=== PATIENT | female | born 1945 | race Caucasian/White ===

== ENCOUNTER → 2023-12-22 08:12 | Outpatient (REF) | payer MEDICARE, OTHER, SELFPAY | LOC: HWRAD 08:12 | PROVIDERS: ATTENDING PHYSICIAN Family Medicine | DX: E04.1 Nontoxic single thyroid nodule (principal) | CPT/HCPCS: 76536 ==

== ENCOUNTER 2024-05-01 07:58 | Inpatient (IN) | payer MEDICARE, OTHER, SELFPAY ==
[2024-05-01] VITALS (7 sets, daily range): BP systolic 122–138; BP diastolic 66–98; BMI 36.2
--- NOTE | 2024-05-01 08:25 | W.PN.CARDCBS ---
Addendum entered and electronically signed by Lyle Stewart DO 05/01/24 10:35:
I saw and examined the patient.
The [employer]'s note was reviewed and I agree with the note.
Comment:
Plan:
Admit for Tikosyn reload. Prior Tikosyn stopped post PVI in December 2023
EKG stable in AFib
She has not missed any doses of anticoagulation
Cont Lopressor
Discussed with family at bedside.
Original Note:
Today's Communication / Plan
-
Labs pending, she is a hard stick
ECG with Afib and QTc 444 ms
Impression / Plan
-
PCP: Dr. Marta Bansal
Cardiology: Dr. Perez
EP: Dr. Workman
Impression:
Paroxysmal Afib
previous flecainide therapy stopped due to ineffectiveness 07/27/23
previous Tikosyn therapy stopped post-PVI 01/09/23
s/p PVI 10/08/23
Chronic Eliquis OAC
KATHLEEN on CPAP
HTN
Normal coronary arteries by cath 04/26/23
h/o breast CA with lumpectomy and XRT 1997
Echo 04/30/23: EF 50%, mild MR, normal aortic valve, normal right heart with mod PHTN with PAP 51 mmHg
Plan:
-Patient came to today for elective Tikosyn loading for recurrent paroxysmal Afib. Patient previously on flecainide, but due to increasing ineffectiveness she stopped flecainide 07/27/23 and was admitted to for Tikosyn loading 08/02/23. Patient
converted after her 1st dose of Tikosyn at that time, but recurred prior to her 5th dose and plan was for a CV, but she spontaneously converted again and was discharged to home in [place]. Patient says that she continued with palpitations and ultimately
had PVI 10/08/23. Tikosyn was stopped 01/10/24 and patient feels she started with increased palpitations and was noted to be in Afib when she saw Dr. Perez in the office 03/13/24 and was referred back to Dr. Workman. Patient was seen by Dr. Workman
04/12/24 and was offered repeat ablation, restart Tikosyn or do nothing and patient chose to restart Tikosyn.
-ECG reviewed by me and patient is in Afib with HRs 110s. She has palpitations.
-Check BMP and pending results with start Tikosyn 500 mcg q 12 hours, patient previously tolerated this dose without QT prolongation in 07/2023.
-She has not missed any doses of Eliquis 5 mg BID.
-Cont outpatient dose of Lopressor 75 mg BID
-Follow BP
Progress Note - Regional Sales Consultant
Subjective
Date of Service: May 01, 2024
She has palpitations
Objective
Labs:
Ordered and pending
Vital Signs and I&O:
BP 134/98, HR 106, RR 20, temp 98.9 �F
Physical Exam
Physical Exam
GEN: No distress, awake, alert and oriented x3
HEENT: EOMI, MMM
LUNGS: CTA B/L, no wheezes or rales
CV: Irreg irreg, S1/S2, no murmur
ABD: soft, BS+, NT, ND
EXT: No clubbing, cyanosis, lesions or edema B/L
NEURO: Gross non-focal
SKIN: Warm, dry and pink. No rash
[2024-05-01 09:46] LABS: Hematocrit 40.9 % (37.0-47.0); Hemoglobin 13.2 g/dL (12.0-16.0); Mean Corp Hgb Conc. 32.3 g/dL (33.0-37.0); Mean Corpuscular Hgb 30.2 pg (27.0-31.0); Mean Corpuscular Volume 93.6 fL (81.0-99.0); Mean Platelet Volume 10.1 fL (7.4-10.4); Platelet Count 200 10^3/uL (130-400); Red Blood Cell Count 4.37 10^6/uL (4.20-5.40); White Blood Cell Count 5.8 10^3/uL (4.8-10.8)
--- NOTE | 2024-05-01 09:53 | PTCARENOTE ---
Patient admitted from home for tikosyn loading. Oriented to room and plan of care, admission assessment completed, EKG and labs done. Patient is in AF, VSS, does feel palpitations at times. Daughter at the bedside, await lab results and will start
tikosyn dose as ordered.
[2024-05-01 10:09] LABS: ALT (SGPT) 31 U/L (0-35); AST (SGOT) 42 U/L (14-36); Albumin 4.5 g/dl (3.5-5.0); Alkaline Phosphatase 127 U/L (38-126); Blood Urea Nitrogen 20 mg/dl (7-17); Carbon Dioxide 28 mmol/L (22-30); Chloride 108 mmol/L (98-107); Estimated Creatinine Clearance 59 ml/min; Glucose 100 mg/dl (70-99); Magnesium 2.2 mg/dl (1.6-2.3); Potassium 4.5 mmol/L (3.5-5.1); Sodium 142 mmol/L (135-145); Total Bilirubin 0.6 mg/dl (0.2-1.3); Total Protein 7.1 g/dl (6.3-8.2); eGFR > 60.00
--- NOTE | 2024-05-01 10:19 | W.CARD.TIKOS ---
Initiate Tikosyn
-
I verify that the patient has not taken any verapamil (Isoptin/Calan), ketoconazole (Nizoral), cimetidine (Tagamet), trimethoprim (Trimpex), trimethoprim/sulfamethoxazole (Bactrim), megesterol (Megace), prochlorperazine (Compazine),
hydrochlorothiazide (HCTZ), dolutegravir (Tivicay) or any Class I or Class III anti-arrhythmic within the last three days
AND
I verify that the patient has not taken amiodarone within the last THREE months, or that the patient's amiodarone plasma concentration is <0.3 mcg/mL.
Creatinine 0.8 mg/dL (0.6-1.0) 05/01/24 09:37
Estimated Creat Clear 59 ml/min 05/01/24 09:37
CrCl calculated by me is 80
Does patient have a Ventricular Conduction Abnormality: No
I have assessed the baseline QTc interval (using QT for heart rate less than 60 bpm) and deemed the patient is appropriate for Dofetilide therapy. I understand that Tikosyn is contraindicated if the QTc is >440msec (500msec in patients with
ventricular conduction abnormalities).
Baseline QTc (in msec): 444
QTc interval is greater than 440msec without conduction abnormality OR greater than 500msec with a conduction abnormality, but acceptable to proceed per Cardiology attending.
Reason for Administration with Prolonged QTc: Other Atrial Arrhythmia
Ordering Physician: Lyle Stewart
[2024-05-01] MEDS: TIKOSYN 500 MCG PO ×2 (10:46→22:00)
--- NOTE | 2024-05-01 12:21 | CM ---
spoke to pt in room, she is prev indep, lives with her daughter in a 2 story home with a first floor set up and no steps to enter. she has a cpap she wears at home but did not bring to hospital. she denies any dc planning needs.
--- NOTE | 2024-05-01 15:37 | PTCARENOTE ---
Patient noted to have converted to SR after first dose of tikosyn, confirmed by EKG. Jennifer OWENS notified
[2024-05-01] MEDS: LIPITOR 10 MG PO (17:28)
[2024-05-01] MEDS: ELIQUIS 5 MG PO (20:11)
[2024-05-01] MEDS: LOPRESSOR 75 MG PO (20:13)
[2024-05-01] MEDS: FLUSH (NSS) 1 FLUSH IV (20:14)
--- NOTE | 2024-05-01 21:44 | PTCARENOTE ---
Received patient at change of shift. Awake and oriented x3. Sitting in the chair. BP 126/66, HR 70 normal sinus, oxygen 96 on room air. Patient usually wears a CPAP at home, but requests just oxygen at bedtime. Discussed next Tikosyn dose and EKG to
follow two hours later. Call arevalo within reach.
[2024-05-02 00:01] VITALS: BP 137/81
--- NOTE | 2024-05-02 00:09 | PTCARENOTE ---
Post 2nd Tikosyn dose QTc 491. Sinus rhythm.
[2024-05-02 03:37] VITALS: BP 115/58
[2024-05-02 04:15] LABS: Hematocrit 36.3 % (37.0-47.0); Mean Corp Hgb Conc. 33.1 g/dL (33.0-37.0); Mean Corpuscular Hgb 31.7 pg (27.0-31.0); Mean Corpuscular Volume 95.8 fL (81.0-99.0); Mean Platelet Volume 10.2 fL (7.4-10.4); Platelet Count 155 10^3/uL (130-400); Red Blood Cell Count 3.79 10^6/uL (4.20-5.40); Red Cell Dist. Width 14.2 % (11.5-14.5); White Blood Cell Count 5.8 10^3/uL (4.8-10.8)
[2024-05-02 04:36] LABS: Blood Urea Nitrogen 21 mg/dl (7-17); Carbon Dioxide 28 mmol/L (22-30); Estimated Creatinine Clearance 59 ml/min; eGFR > 60.00
[2024-05-02 04:46] LABS: Calcium 9.6 mg/dl (8.4-10.2); Chloride 109 mmol/L (98-107); Glucose 96 mg/dl (70-99); Sodium 139 mmol/L (135-145)
[2024-05-02 07:38] VITALS: BP 135/65
[2024-05-02] MEDS: LOPRESSOR 75 MG PO (08:21)
[2024-05-02] MEDS: ELIQUIS 5 MG PO (08:21)
--- NOTE | 2024-05-02 08:47 | W.PN.CARDCBS ---
Addendum entered and electronically signed by Nahomy Mccabe PA-C 05/02/24 11:38:
[id number]
Addendum entered and electronically signed by Lyle Stewart DO 05/02/24 11:00:
I saw and examined the patient.
The Rn Procedure's note was reviewed and I agree with the note.
Comment:
Plan:
She converted to sinus
QTc remains stable.
Tolerating Tikosyn as she did previous
Cont anticoagulation
outpt follow up arranged.
Pt was appreciative
Discussed with EP
Stable for d/c today.
Original Note:
Today's Communication / Plan
-
follow QTc
ok for DC after 3rd dose of tikosyn if QTc remains stable
OP cardiac follow up arranged
Impression / Plan
-
PCP: Dr. Marta Bansal
Cardiology: Dr. Perez
EP: Dr. Workman
Impression:
Paroxysmal Afib
previous flecainide therapy stopped due to ineffectiveness 07/27/23
previous Tikosyn therapy stopped post-PVI 01/10/24
s/p PVI 10/08/23
Chronic Eliquis OAC
KATHLEEN on CPAP
HTN
Normal coronary arteries by cath 04/26/23
h/o breast CA with lumpectomy and XRT 1997
Echo 04/30/23: EF 50%, mild MR, normal aortic valve, normal right heart with mod PHTN with PAP 51 mmHg
Plan:
-she presents for reload of tikosyn. she had previously tolerated same dose of tikosyn 07/2023 which was stopped 12/2023
-she converted back to SR around 1:30 PM 05/01. she is for tikosyn dose #3 this AM. reviewed with EP, if QTc remains stable, ok for DC after 3rd dose. she had previously tolerated same dose of tikosyn 07/2023
-continue eliquis 5mg BID
-continue lopressor 75mg BID
-OP cardiac follow up arranged
PREADMIT DATA:
-Patient came to today for elective Tikosyn loading for recurrent paroxysmal Afib. Patient previously on flecainide, but due to increasing ineffectiveness she stopped flecainide 07/27/23 and was admitted to for Tikosyn loading 08/02/23. Patient
converted after her 1st dose of Tikosyn at that time, but recurred prior to her 5th dose and plan was for a CV, but she spontaneously converted again and was discharged to home in [place]. Patient says that she continued with palpitations and ultimately
had PVI 10/08/23. Tikosyn was stopped 01/10/24 and patient feels she started with increased palpitations and was noted to be in Afib when she saw Dr. Perez in the office 03/13/24 and was referred back to Dr. Workman. Patient was seen by Dr. Workman
04/12/24 and was offered repeat ablation, restart Tikosyn or do nothing and patient chose to restart Tikosyn.
Progress Note - Pl[employer]her
Subjective
Date of Service: May 02, 2024
feeling well. no issues overnight
Objective
Labs:
05/02/24 03:50
05/02/24 03:50
Labs
Hgb 12.0 g/dL (12.0-16.0) 05/02/24 03:50
Hct 36.3 % (37.0-47.0) L 05/02/24 03:50
Plt Count 155 10^3/uL (130-400) D 05/02/24 03:50
Sodium 139 mmol/L (135-145) 05/02/24 03:50
Potassium 4.0 mmol/L (3.5-5.1) 05/02/24 03:50
BUN 21 mg/dl (7-17) H 05/02/24 03:50
Creatinine 0.8 mg/dL (0.6-1.0) 05/02/24 03:50
Glucose 96 mg/dl (70-99) 05/02/24 03:50
Vital Signs and I&O:
Vital Signs
Temp Pulse Resp BP Pulse Ox
97.8 F 59 18 135/65 96
05/02/24 07:39 05/02/24 08:21 05/02/24 07:39 05/02/24 08:21 05/02/24 07:39
Vital Signs
Temp Pulse Resp BP Pulse Ox
97.8 F 59 18 135/65 96
05/02/24 07:39 05/02/24 08:21 05/02/24 07:39 05/02/24 08:21 05/02/24 07:39
Intake & Output
04/30/24 05/01/24 05/02/24 05/03/24
07:59 07:59 07:59 07:59
Intake Total 740 / 740
Balance 740 / 740
Physical Exam
Physical Exam
GEN: No distress, awake, alert, oriented x3
HEENT: supple, anicteric, mmm, eomi
LUNGS: CTA B/L, no wheezes
CV: Reg, S1/S2, no murmur
ABD: soft, BS+, NT/ND
EXT: No cyanosis, clubbing. trace edema of B/L LE
NEURO: Gross non-focal
SKIN: Warm, pink, dry. No rash
[2024-05-02] MEDS: TIKOSYN 500 MCG PO (09:10)
--- NOTE | 2024-05-02 09:21 | W.DS.TRANS ---
DC Summary - [employer]ing [employer]
-
Discharge Instructions:
Discharge Diagnosis/Procedures atrial fibrillation, tikosyn load
Diet Regular
Activity As tolerated
Driving Restrictions As prior to admission
Bathing Restrictions None
Instructions:
Stand-Alone Forms:
Changes to Home Medications: Yes
Discharge Medications:
DC Medications w/original date entered in [employer]
apixaban 5 mg tablet (Eliquis) 5 mg PO BID Blood Clot Prevention/Tx 04/26/23
atorvastatin 10 mg tablet 10 mg PO QPM High Cholesterol 04/26/23
vit C 250 mg-vit E 90 mg-zinc 40 mg-copper 1 mm-zcduyl-cyoxxg capsule (PreserVision AREDS-2) 1 tab PO BID Supplement 04/26/23
metoprolol tartrate 75 mg tablet 75 mg PO BID 09/24/23
cholecalciferol (vitamin D3) 50 mcg (2,000 unit) capsule (Vitamin D3) 50 mcg PO DAILY 05/01/24
dofetilide 500 mcg capsule (Tikosyn) 500 mcg PO Q12H #60 caps 05/02/24
Home Medication Changes
tikosyn is new
Pending Results: No
[2024-05-02 11:19] VITALS: BP 138/63
== END 2024-05-02 14:13 | disposition home or self-care (01) | DRG 310 ==
LOC: IVU 07:58
PROVIDERS: Physician Assistant Medical; ADMITTING PHYSICIAN Internal Medicine Cardiovascular Disease; FAMILY PHYSICIAN Family Medicine
DX: I48.0 Paroxysmal atrial fibrillation (principal); I10 Essential (primary) hypertension; G47.33 Obstructive sleep apnea (adult) (pediatric); I34.1 Nonrheumatic mitral (valve) prolapse; E78.00 Pure hypercholesterolemia, unspecified; E66.9 Obesity, unspecified; Z68.36 Body mass index [BMI] 36.0-36.9, adult; Z79.01 Long term (current) use of anticoagulants; Z85.3 Personal history of malignant neoplasm of breast; Z92.3 Personal history of irradiation; Z82.49 Family history of ischemic heart disease and other diseases of the circulatory system; Z79.899 Other long term (current) drug therapy
CPT/HCPCS: 80048; 80053; 83735; 85027; 93005

== ENCOUNTER 2024-09-29 08:58 | Emergency (ER) | payer MEDICARE, OTHER, SELFPAY ==
[2024-09-29 09:13] VITALS: BP 120/97
[2024-09-29 10:00] VITALS: BP 146/79
[2024-09-29 10:07] LABS: % Basophils 0.8 % (0-2); % Immature Granulocytes 0.4 % (0-0.5); % Lymphocytes 19.1 % (20.5-51.1); % Monocytes 10.2 % (1.7-9.3); % Neutrophils 68.5 % (42.2-75.2); Absolute Eosinophils 0.1 10^3/uL (0-0.7); Absolute Monocytes 0.5 10^3/uL (0.1-0.6); Absolute Neutrophils 3.5 10^3/uL (1.4-6.5); Hematocrit 41.5 % (37.0-47.0); Hemoglobin 13.6 g/dL (12.0-16.0); Mean Corp Hgb Conc. 32.8 g/dL (33.0-37.0); Mean Corpuscular Hgb 30.9 pg (27.0-31.0); Mean Corpuscular Volume 94.3 fL (81.0-99.0); Mean Platelet Volume 10.5 fL (7.4-10.4); Nucleated Red Blood Cells % 0 %; Platelet Count 188 10^3/uL (130-400); White Blood Cell Count 5.1 10^3/uL (4.8-10.8)
[2024-09-29 10:12] LABS: ALT (SGPT) 29 U/L (0-35); AST (SGOT) 43 U/L (14-36); Albumin 4.4 g/dl (3.5-5.0); Alkaline Phosphatase 118 U/L (38-126); Blood Urea Nitrogen 16 mg/dl (7-17); Calcium 9.5 mg/dl (8.4-10.2); Carbon Dioxide 25 mmol/L (22-30); Chloride 105 mmol/L (98-107); Glucose 111 mg/dl (70-99); Potassium 4.4 mmol/L (3.5-5.1); Sodium 140 mmol/L (135-145); Total Bilirubin 0.6 mg/dl (0.2-1.3); Total Protein 7.2 g/dl (6.3-8.2); eGFR > 60.00
[2024-09-29 10:13] LABS: NT-proBNP 1550 pg/ml
[2024-09-29 10:28] LABS: COVID-19 Antigen Negative (Negative)
--- NOTE | 2024-09-29 10:49 | ED.GENMED ---
History of Present Illness
General
Chief Complaint: Cold/Flu/URI Symptoms
Source: patient and family
Time Seen by Provider: 09/29/24 10:35
History of Present Illness
History of Present Illness:
This patient is an 79-year-old female who states she has had 'cold symptoms' for at least a few days. She notes her most predominant complaint is a cough which is sometimes productive associated with wheezing. This seems to be worse at night, and
when she lays down. She is not able to wear her CPAP as a result. She says she normally goes 'in and out' of A-fib, and notices that she seems to be in it more frequently with the symptoms. She reports sick contacts and that her grandchildren
have RSV and walking pneumonia. She denies chest pain or pressure, dizziness, fever, chills, abdominal pain, nausea, vomiting, leg swelling, or other complaints. Patient does not have a history of heart failure.
Past History
Past History
ED Past Medical History: Other (Hypertension, A-fib, macular degeneration, breast cancer in remission)
ED Past Surgical History: Orthopedic
Social History
Tobacco: Former smoker
Alcohol: None
Drug: None
Living: with family
Phy Exam
Physical Exam
Physical Exam:
GENERAL: Alert , in no apparent distress, very pleasant, in no distress
EYE: pupils equal and reactive
NECK: Supple, no significant adenopathy.
ENT: o/p clr, mmm.
CARDIAC: Regular rate and rhythm .
LUNGS: Equal breath sounds bilaterally, no acute respiratory distress, diffuse wheezing, no rales or rhonchi, occasional cough noted
ABDOMEN: Soft, without focal tenderness, no r/g, no cvat
NEUROLOGICAL: Alert and oriented, no focal neuro deficits
SKIN: Warm and dry, skin intact.
MUSCULOSKELETAL: No edema, well perfused.
PSYCH: Normal and appropriate interaction.
Course
Orders/Labs/Results
Orders:
Orders
09/29/24 09:21
Electrocardiogram (*1) Urgent
Reason for Study: Abdominal Pain
EKG- Treatment ONCE
09/29/24 09:41
COVID-19 Antigen Urgent
Source: Nasal Swab
Complete Blood Count/With Diff Urgent
Comprehensive Metabolic Panel Urgent
NT-proBNP Urgent
Influenza A+B Rapid Molecular Urgent
HILARY Source: Nasal Swab
Specimen Description:
09/29/24 10:37
CR Chest - 2 Views Urgent
Comment:
Reason For Exam: sob
09/29/24 10:48
Levalbuterol [Xopenex 1.25 mg Inhalant Solution] 1.25 mg INH R NOW STA
Prednisone [Deltasone] 50 mg PO NOW STA
09/29/24 11:20
Prednisone [Deltasone] 50 mg .ROUTE .STK-MED ONE
Abnormal Lab Results
09/29/24
09:41
MCHC 32.8 L g/dL
(33.0-37.0)
MPV 10.5 H fL
(7.4-10.4)
Absolute Lymphs (auto) 1.0 L 10^3/uL
(1.2-3.4)
Lymphocytes % 19.1 L %
(20.5-51.1)
Monocytes % 10.2 H %
(1.7-9.3)
Glucose 111 H mg/dl
(70-99)
AST 43 H U/L
(14-36)
09/29/24 09:41
09/29/24 09:41
Vital Signs
Initial and Last Documented VS:
Initial Vital Signs
Temp Pulse Resp BP Pulse Ox
98.8 F 81 20 120/97 94
09/29/24 09:13 09/29/24 09:13 09/29/24 09:13 09/29/24 09:13 09/29/24 09:13
Last Documented Vital Signs
Temp Pulse Resp BP Pulse Ox
98.8 F 81 20 120/97 94
09/29/24 09:13 09/29/24 09:13 09/29/24 09:13 09/29/24 09:13 09/29/24 09:13
*Critical Care Note
Total Time (30-74mins, 75-104mins- exclusive of procedures): Not Applicable
Update Note
Update Note:
Patient presents to the Emergency Department with __cough and wheezing
Number and Complexity of Problems Addressed at the Encounter
� Chronic conditions affecting care:
� Acute Exacerbation and/or Progression of Chronic Illness:
� Differential Diagnosis includes: But not limited to bronchitis, pneumonia, heart failure, ACS, etc. etc.
Amount and/or Complexity of Data to be Reviewed and Analyzed
� I performed an independent evaluation of and my interpretation is:
EKG:
CT:
Xrays:
Laboratory Studies: Generally unremarkable, BNP elevation noted
Other:
� Review of other/old records reveals: Patient was admitted April 2024 with paroxysmal A-fib, loaded on Tikosyn, normal coronary arteries by cath March 2023. Echocardiogram April 2023 normal LV size and thickness EF 50%
� Clinical information was obtained by an independent historian: Daughter who is bedside and patient lives with
� Prescriptions/Medications Considered but not given:
� Further testing considered but not performed:
Risk of Complications and/or Morbidity or Mortality of Patient Management
� Social determinants of health affecting care:
� Discussion with other providers (PCP, Hospitalists, Consultants, etc):
� Escalation of care including admission/observation vs risk of discharge considered: 11:46 AM patient remains in a normal sinus rhythm, heart rate in the 60s. She feels better status post inhaler/nebulizer here. No specific
pneumonia noted. Clearly patient has cough and wheezing, suspect viral etiology. Recommend steroids and inhaler, will use Xopenex given her history of A-fib. Discussed with patient importance of follow-up and reasons to return to the ER.
Daughter at bedside and in agreement.
ED Attending Note
-
Portions of this chart may have been created with voice recognition software.� Occasional wrong word or��sound alike� substitutions may have occurred due to the inherent limitations of voice recognition software.
Discharge Plan
Departure
Patient Disposition: Home (Routine Discharge)
Date of Disposition: 09/29/24
Time of Disposition: 11:43
Patient with high blood pressure during this ER visit?: Yes
Condition: Good
Discharge Problem:
Acute bronchitis
Instructions: Acute Bronchitis, Adult (DC), BLOOD PRESSURE
Prescriptions:
New
levalbuterol tartrate [Xopenex HFA] 45 mcg/actuation HFA aerosol inhaler
2 inh inhalation Q6H Qty: 15 0RF
prednisone 50 mg tablet
50 mg PO DAILY Qty: 5 0RF
No Action
atorvastatin 10 mg Tablet
10 mg PO QPM
Eliquis 5 mg Tablet
5 mg PO BID
PreserVision AREDS-2 250-90-40-1 mg Capsule
1 tab PO BID
metoprolol tartrate 75 mg Tablet
75 mg PO BID
cholecalciferol (vitamin D3) [Vitamin D3] 50 mcg (2,000 unit) Capsule
50 mcg PO DAILY
dofetilide [Tikosyn] 500 mcg capsule
500 mcg PO Q12H Qty: 60 11RF
Referrals:
Marta Bansal DO [Family Provider] - Follow up in 2-3 days
Activity Restrictions/Additional Instructions:
IF YOU DEVELOP FEVER, VOMITING, CHEST PAIN, WORSENING/PERSISTENT TROUBLE BREATHING, DIZZINESS, SWELLING, OR OTHER WORRISOME SIGNS, GO TO THE ER IMMEDIATELY!
Interventions
Interventions:
*Risk Screen - Suicide Last Done: 09/29/24 09:13
*General Assessment Last Done: 09/29/24 09:13
*Neglect/Abuse Screening Last Done: 09/29/24 09:13
Discharge Date and Time
Print Language: BULGARIAN
[2024-09-29] MEDS: XOPENEX 1.25 MG INHALANT SOLUTION INH (11:23)
[2024-09-29] MEDS: DELTASONE 50 MG PO (11:23)
[2024-09-29 12:12] LABS: Troponin I < 0.012 ng/ml
== END 2024-09-29 11:55 | disposition home or self-care (01) ==
LOC: EMR 08:58
PROVIDERS: EMERGENCY PHYSICIAN Emergency Medicine; FAMILY PHYSICIAN Family Medicine
DX: J20.9 Acute bronchitis, unspecified (principal); I10 Essential (primary) hypertension; Z87.891 Personal history of nicotine dependence
CPT/HCPCS: 99283; 94640; 71046; 80053; 83880; 84484; 85025; 87502; 87811; 93005

== ENCOUNTER 2024-10-02 20:46 | Inpatient (IN) | payer MEDICARE, OTHER, SELFPAY ==
[2024-10-02] VITALS (7 sets, daily range): BP systolic 123–164; BP diastolic 77–102; BMI 37.5; BMI 35.4
--- NOTE | 2024-10-02 15:11 | ED.GENMED ---
ED Provider Triage
<Marco Antonio Valdez Jr., PA-C - Last Filed: 10/02/24 15:12>
-
Patient seen by provider in Triage?: Seen in Triage
Attestation: A medical screening examination has been initiated by a qualified medical provider. Based on the assessment performed at this time, it has been determined that an emergent medical condition may exist and the patient has been informed
that further medical evaluation and possible additional diagnostic testing may be needed.
HPI: 79-year-old female presenting to the emergency department today with concerns of palpitations and feels similar to A-fib. Recently diagnosed with bronchitis taking steroid and inhaler. Feels somewhat short of breath with exertion. Initial
labs chest x-ray EKG ordered.
GENERAL: Alert , in no apparent distress
EYE: No visual abnormalities.
NECK: Trachea midline
ENT: No visible abnormalities.
LUNGS: No acute respiratory distress
NEUROLOGICAL: Alert and oriented
SKIN: Skin intact. No visible changes.
MUSCULOSKELETAL: Moving extremities normally
PSYCH: Normal and appropriate interaction.
This is a medical evaluation conducted in person to initiate diagnostic evaluation and provide initial therapeutics. Please see further documentation by the treating clinician.
History of Present Illness
<Marco Antonio Valdez Jr., PA-C - Last Filed: 10/02/24 15:12>
General
Chief Complaint: Breathing Problem
Time Seen by Provider: 10/02/24 19:35
<Aditya Cabral DO - Last Filed: 10/02/24 20:44>
History of Present Illness
History of Present Illness:
TIME OF INITIAL ENCOUNTER: 7:35 PM
HPI: The patient presents due to shortness of breath. She was also seen here 2 days ago diagnosed with bronchitis. Of note, she does have sick contacts and her grandchildren reportedly have RSV. She does not have a history of heart failure. She
reports no lower extremity edema. She has no chest pain.
EXAM:
GENERAL: Appears somewhat weak, was able to walk on her own
HEENT: Moist oral mucosa
CARDIOVASCULAR: No murmurs, tachycardic heart rate, irregular rhythm, No chest wall tenderness
PULMONARY: Minimal respiratory distress, marked wheeze bilateral
ABDOMEN: Soft with no peritoneal signs, no tenderness
NEUROLOGIC: Good strength all extremities, no coordination deficits
PSYCHIATRIC: Appropriate mental status, normal insight and judgement
EXTREMITIES: Nontender, no edema, moves all extremities equally
SKIN: No rash, no lesions
NUMBER AND COMPLEXITY OF PROBLEMS ADDRESSED AT THE ENCOUNTER
� Chronic conditions affecting care: KATHLEEN on CPAP, former smoker, A-fib/flutter, high blood pressure, hyperlipidemia, diverticular disease
� Acute Exacerbation and/or Progression of Chronic Illness: This is an acute problem
� Differential Diagnosis includes: Bronchitis, pneumonia, rapid A-fib, CHF
AMOUNT AND/OR COMPLEXITY OF DATA TO BE REVIEWED AND ANALYZED
� I performed an independent evaluation of and my interpretation is:
EKG: A-fib 159, normal axis, nonspecific ST abnormality
CT:
X-rays: Chest x-ray shows no acute abnormality
Laboratory Studies: Electrolytes unremarkable, bicarb 24, BNP 2069, troponin less than 0.012
Other:
� Review of other/old records: The patient was seen here 2 days ago and at that time had a BNP of 1550
� Clinical information was obtained by an independent historian: I spoke to the daughter at bedside
� Prescriptions/Medications Considered but not given:
� Further testing considered but not performed:
RISK OF COMPLICATIONS AND/OR MORBIDITY OR MORTALITY OF PATIENT MANAGEMENT
� Social determinants of health affecting care: Lives at home
� Discussion with other providers: Dr. Desir for admission at 7:58 PM
� Escalation of care including admission/observation vs risk of discharge considered: I reviewed records, the patient was seen here and treated for bronchitis 2 days ago and was placed on steroids and given nebs. She arrives in
rapid A-fib and does have a history of paroxysmal A-fib. Old records indicate that the patient was loaded with Tikosyn in April 2024 and old echo from April 2023 showed an EF of 50%.
ANY OTHER UPDATES:
Sent by PMD for admission; seen in our ED 2d w/ bronchitis; discharged; h/o AFib on Tikoxyn/Eliquis; in rapid AFib here rates in 150s, ordered cardizem bolus/drip. Severe wheeze, will try Xopenex and IV steroids. 2 CXRs neg. Family members w/
RSV. Symptoms so severe she hasn't been able to tolerate CPAP (KATHLEEN). Will plan to keep in the hospital as she is failing outpatient management.
Past History
<Marco Antonio Valdez Jr., PA-C - Last Filed: 10/02/24 15:12>
Past History
ED Past Medical History: Other (Hypertension, A-fib, macular degeneration, breast cancer in remission)
ED Past Surgical History: Orthopedic
Social History
Tobacco: Former smoker
Alcohol: None
Drug: None
Living: with family
Phy Exam
<Aditya Cabral DO - Last Filed: 10/02/24 20:44>
Physical Exam
Physical Exam:
See HPI
Scores
<Aditya Cabral DO - Last Filed: 10/02/24 20:44>
Heart Failure Risk
Heart Failure Risk Score: Not Applicable
Course
<Marco Antonio Valdez Jr., PA-C - Last Filed: 10/02/24 15:12>
Orders/Labs/Results
Orders:
Orders
10/02/24 15:11
Electrocardiogram (*1) Stat
Reason for Study: Other
Other Reason for Exam: chest pain
EKG- Treatment ONCE
CR Chest - 2 Views Urgent
Comment:
Reason For Exam: papls
10/02/24 15:25
Complete Blood Count/With Diff Urgent
Comprehensive Metabolic Panel Urgent
Magnesium Urgent
NT-proBNP Urgent
Troponin I Urgent
10/02/24 19:50
Diltiazem HCl [Cardizem] 10 mg IV NOW STA
Levalbuterol [Xopenex 1.25 mg Inhalant Solution] 1.25 mg INH R NOW STA
MethylPREDNISolone PF [Solu-Medrol Pf] 125 mg IV NOW STA
10/02/24 20:00
Diltiazem 125 mg/125 ml Nss [Cardizem] 125 mg in 125 ml IV PER PROTOCOL
Currently infusing. Continue current dose and titrate:: Yes
Titrate to keep:: Heart rate 80-100 bpm
Titrate by mg/hr:: 5 mg/hr
Frequency of titrations (minutes):: 15
Maximum dose in mg/hr:: 15
10/02/24 20:20
Admit/Transfer Patient As Directed
Co-Sign Provider:
Level of Care: Inpatient admission
Assign to:: IVU
Physician / Group: Htay
Diagnosis: Bronchitis, Rapid A-Fib
Reason for Hospitalization: Cardizem drip, nebs and steroids
Expected length of stay greater than two midnights?: Yes
ELOS- Estimated Length of Stay in days: 3
I certify the patient meets the requirements for IP care: Yes
10/02/24 20:21
PRN Pain Medication Management As Directed
May give lesser potent ordered pain med per pt: Yes
preference::
Protocol:: Medication orders for pain may be administered in a
manner that supports deferring to patient preference
when the pt is:
- Requesting an ordered lesser potent pain medication.
Least to most potent pain medications are defined
as: acetaminophen < NSAID < tramadol < opioids
(morphine, oxycodone, hydromorphone).
- Requesting a lesser dose of the same medication IF
ORDERED.
- Requesting a less intrusive route of administration
if both routes are prescribed by the provider (PO <
IV).
10/02/24 20:23
Code Status As Directed
Resuscitation Status: Full Code
10/02/24 20:26
Magnesium Routine
Furosemide [Lasix] 40 mg IV NOW STA
10/02/24 20:43
Add On- LAB Urgent
Tests Added?: mag
10/03/24 06:00
Magnesium IN AM
Abnormal Lab Results
10/02/24
15:25
MCHC 32.7 L g/dL
(33.0-37.0)
Absolute Lymphs (auto) 0.9 L 10^3/uL
(1.2-3.4)
Neutrophils % 81.5 H %
(42.2-75.2)
Lymphocytes % 16.2 L %
(20.5-51.1)
Monocytes % 1.6 L %
(1.7-9.3)
BUN 21 H mg/dl
(7-17)
Glucose 155 H mg/dl
(70-99)
10/02/24 15:25
10/02/24 15:25
Vital Signs
Initial and Last Documented VS:
Initial Vital Signs
Temp Pulse Resp BP Pulse Ox
36.7 C 106 16 148/84 98
10/02/24 15:11 10/02/24 15:11 10/02/24 15:11 10/02/24 15:11 10/02/24 15:11
Last Documented Vital Signs
Temp Pulse Resp BP Pulse Ox
36.7 C 136 21 164/91 96
10/02/24 15:11 10/02/24 20:15 10/02/24 20:15 10/02/24 20:12 10/02/24 20:15
<Aditya Robertdeniseirvin, DO - Last Filed: 10/02/24 20:44>
Orders/Labs/Results
Orders:
Orders
10/02/24 15:11
Electrocardiogram (*1) Stat
Reason for Study: Other
Other Reason for Exam: chest pain
EKG- Treatment ONCE
CR Chest - 2 Views Urgent
Comment:
Reason For Exam: papls
10/02/24 15:25
Complete Blood Count/With Diff Urgent
Comprehensive Metabolic Panel Urgent
Magnesium Urgent
NT-proBNP Urgent
Troponin I Urgent
10/02/24 19:50
Diltiazem HCl [Cardizem] 10 mg IV NOW STA
Levalbuterol [Xopenex 1.25 mg Inhalant Solution] 1.25 mg INH R NOW STA
MethylPREDNISolone PF [Solu-Medrol Pf] 125 mg IV NOW STA
10/02/24 20:00
Diltiazem 125 mg/125 ml Nss [Cardizem] 125 mg in 125 ml IV PER PROTOCOL
Currently infusing. Continue current dose and titrate:: Yes
Titrate to keep:: Heart rate 80-100 bpm
Titrate by mg/hr:: 5 mg/hr
Frequency of titrations (minutes):: 15
Maximum dose in mg/hr:: 15
10/02/24 20:20
Admit/Transfer Patient As Directed
Co-Sign Provider:
Level of Care: Inpatient admission
Assign to:: IVU
Physician / Group: Htay
Diagnosis: Bronchitis, Rapid A-Fib
Reason for Hospitalization: Cardizem drip, nebs and steroids
Expected length of stay greater than two midnights?: Yes
ELOS- Estimated Length of Stay in days: 3
I certify the patient meets the requirements for IP care: Yes
10/02/24 20:21
PRN Pain Medication Management As Directed
May give lesser potent ordered pain med per pt: Yes
preference::
Protocol:: Medication orders for pain may be administered in a
manner that supports deferring to patient preference
when the pt is:
- Requesting an ordered lesser potent pain medication.
Least to most potent pain medications are defined
as: acetaminophen < NSAID < tramadol < opioids
(morphine, oxycodone, hydromorphone).
- Requesting a lesser dose of the same medication IF
ORDERED.
- Requesting a less intrusive route of administration
if both routes are prescribed by the provider (PO <
IV).
10/02/24 20:23
Code Status As Directed
Resuscitation Status: Full Code
10/02/24 20:26
Magnesium Routine
Furosemide [Lasix] 40 mg IV NOW STA
10/02/24 20:43
Add On- LAB Urgent
Tests Added?: mag
10/03/24 06:00
Magnesium IN AM
Abnormal Lab Results
10/02/24
15:25
MCHC 32.7 L g/dL
(33.0-37.0)
Absolute Lymphs (auto) 0.9 L 10^3/uL
(1.2-3.4)
Neutrophils % 81.5 H %
(42.2-75.2)
Lymphocytes % 16.2 L %
(20.5-51.1)
Monocytes % 1.6 L %
(1.7-9.3)
BUN 21 H mg/dl
(7-17)
Glucose 155 H mg/dl
(70-99)
10/02/24 15:25
10/02/24 15:25
Vital Signs
Initial and Last Documented VS:
Initial Vital Signs
Temp Pulse Resp BP Pulse Ox
36.7 C 106 16 148/84 98
10/02/24 15:11 10/02/24 15:11 10/02/24 15:11 10/02/24 15:11 10/02/24 15:11
Last Documented Vital Signs
Temp Pulse Resp BP Pulse Ox
36.7 C 136 21 164/91 96
10/02/24 15:11 10/02/24 20:15 10/02/24 20:15 10/02/24 20:12 10/02/24 20:15
<Aditya Cabral DO - Last Filed: 10/02/24 20:44>
*Critical Care Note
Total Time (30-74mins, 75-104mins- exclusive of procedures): Not Applicable
ED Attending Note
<ROMAN Lamb Jr.-C - Last Filed: 10/02/24 15:12>
-
Portions of this chart may have been created with voice recognition software.� Occasional wrong word or��sound alike� substitutions may have occurred due to the inherent limitations of voice recognition software.
Discharge Plan
Departure
Patient Disposition: Admit
Date of Disposition: 10/02/24
Time of Disposition: 19:52
Presentation/result/management discussed w/ accepting MD/DO: Hospitalist
Discharge Problem:
Exacerbation of reactive airway disease
Instructions: Acute Bronchitis, Adult (DC)
Prescriptions:
No Action
atorvastatin 10 mg Tablet
10 mg PO HS
Eliquis 5 mg Tablet
5 mg PO BID
PreserVision AREDS-2 250-90-40-1 mg Capsule
1 tab PO BID
metoprolol tartrate 75 mg Tablet
75 mg PO BID
cholecalciferol (vitamin D3) [Vitamin D3] 50 mcg (2,000 unit) Capsule
50 mcg PO DAILY
dofetilide [Tikosyn] 500 mcg capsule
500 mcg PO Q12H Qty: 60 11RF
prednisone 50 mg tablet
50 mg PO DAILY Qty: 5 0RF
Patient Comments:
10/02/24: Patient has 1 dose left to take tomorrow
levalbuterol tartrate [Xopenex HFA] 45 mcg/actuation HFA aerosol inhaler
2 inh inhalation R QID
Interventions
Interventions:
*Risk Screen - Suicide Last Done: 10/02/24 15:11
*Neglect/Abuse Screening Last Done: 10/02/24 15:11
Discharge Date and Time
Print Language: ICELANDIC
[2024-10-02 15:48] LABS: ALT (SGPT) 31 U/L (0-35); AST (SGOT) 34 U/L (14-36); Albumin 4.8 g/dl (3.5-5.0); Alkaline Phosphatase 110 U/L (38-126); Blood Urea Nitrogen 21 mg/dl (7-17); Calcium 10.2 mg/dl (8.4-10.2); Carbon Dioxide 24 mmol/L (22-30); Chloride 104 mmol/L (98-107); Glucose 155 mg/dl (70-99); Magnesium 2.3 mg/dl (1.6-2.3); Potassium 4.2 mmol/L (3.5-5.1); Sodium 141 mmol/L (135-145); Total Bilirubin 0.6 mg/dl (0.2-1.3); Total Protein 7.8 g/dl (6.3-8.2); eGFR > 60.00
[2024-10-02 15:58] LABS: NT-proBNP 2070 pg/ml; Troponin I < 0.012 ng/ml
[2024-10-02 16:14] LABS: % Basophils 0.2 % (0-2); % Immature Granulocytes 0.5 % (0-0.5); % Lymphocytes 16.2 % (20.5-51.1); % Monocytes 1.6 % (1.7-9.3); % Neutrophils 81.5 % (42.2-75.2); Absolute Lymphocytes 0.9 10^3/uL (1.2-3.4); Absolute Monocytes 0.1 10^3/uL (0.1-0.6); Absolute Neutrophils 4.7 10^3/uL (1.4-6.5); Nucleated Red Blood Cells % 0 %
[2024-10-02 17:31] LABS: Hemoglobin 14.4 g/dL (12.0-16.0); Mean Corp Hgb Conc. 32.7 g/dL (33.0-37.0); Mean Corpuscular Hgb 30.6 pg (27.0-31.0); Mean Corpuscular Volume 93.6 fL (81.0-99.0); Mean Platelet Volume 9.9 fL (7.4-10.4); Platelet Count 224 10^3/uL (130-400); White Blood Cell Count 5.7 10^3/uL (4.8-10.8)
--- NOTE | 2024-10-02 20:00 | HPS.HSE ---
Family Physician
-
Family Physician:
Chief Complaint
-
Cough, Shortness of Breath and Palpitations
History of Present Illness
Patient is an 79 y/0 female past medical history of paroxysmal atrial fibrillation, hypertension, and hyperlipidemia who presents with persistent cough, shortness of breath and palpitation. Patient reports she has been battling an upper respiratory
infection for the past week. She was seen here at the [facility] Emergency Department three days ago and diagnosed with bronchitis for which she was given an inhaler and steroids. She notes increasing palpitations with elevated heart rate
due to atrial fibrillation. She denies fevers, sweats or chills.
Medical History
Past Medical History
Past Medical History: Reports Other
Additional Past Medical History:
Paroxysmal Atrial Fibrillation
Tachy-George Syndrome
Essential Hypertension
Hyperlipemia
Peripheral Neuropathy
Breast CA s/p Left Lumpectomy with Lymph Node Excision and Radiation
Class II Obesity
Obstructive Sleep Apnea
Past Surgical History: Reports Other
Additional Past Surgical History:
Left Breast Lumpectomy with Lymph Node Dissection
Pulmonary Vein Isolation Ablation - Sep 2023
Social History
Tobacco: Former Smoker (Quit in 1960s)
Living: With Family
Family History
Family History: Not pertinent
Allergies / Home Medications
Allergies reflects when Allergies were last updated in [employer].
Home Medications with original date entered in [employer]
Allergy/Medication List:
Allergies
Allergy/AdvReac Type Severity Reaction Status Date / Time
No Known Allergies Allergy Verified 10/02/24 15:13
Home Medications
apixaban 5 mg tablet (Eliquis) 5 mg PO BID Blood Clot Prevention/Tx 04/26/23
atorvastatin 10 mg tablet 10 mg PO HS High Cholesterol 04/26/23
vit C 250 mg-vit E 90 mg-zinc 40 mg-copper 1 nv-[id number] capsule (PreserVision AREDS-2) 1 tab PO BID Supplement 04/26/23
metoprolol tartrate 75 mg tablet 75 mg PO BID 09/24/23
cholecalciferol (vitamin D3) 50 mcg (2,000 unit) capsule (Vitamin D3) 50 mcg PO DAILY 05/01/24
dofetilide 500 mcg capsule (Tikosyn) 500 mcg PO Q12H #60 caps 05/02/24
prednisone 50 mg tablet 50 mg PO DAILY #5 tabs 09/29/24
levalbuterol tartrate 45 mcg/actuation aerosol inhaler (Xopenex HFA) 2 inh inhalation R QID wheezing 10/02/24
Review of Systems
-
A 12 point ROS was completed and negative except as noted: Yes
Constitutional: Denies Fever or Chills
Respiratory: Reports Cough and Trouble Breathing
Cardiac: Reports Palpitations; Denies Chest Pain
Physical Exam
Vital Signs
Vital Signs
Temp Pulse Resp BP Pulse Ox
98.0 F 66 18 151/90 98
10/02/24 15:11 10/02/24 17:18 10/02/24 17:18 10/02/24 17:18 10/02/24 17:18
Physical Exam
General: Comfortable, Conversant and Other (Frequent Cough)
HEENT: Anicteric and Moist mucous membranes
Respiratory: Wheezes (Diffuse) and Non Labored Respirations
Cardiac: S1/S2, Irregular Rhythm and Tachycardia
GI: Soft and Non Tender
Rectal: Deferred by Provider
Musculoskeletal: No Clubbing and No Cyanosis
Skin: Warm and Dry
Neuro: Awake, Alert, Oriented and Nonfocal/grossly intact
Psych: Calm
Laboratory Results
-
10/02/24 15:25
10/02/24 15:25
Laboratory Results
Total Bilirubin 0.6 mg/dl (0.2-1.3) 10/02/24 15:25
AST 34 U/L (14-36) 10/02/24 15:25
ALT 31 U/L (0-35) 10/02/24 15:25
Alkaline Phosphatase 110 U/L (38-126) 10/02/24 15:25
Troponin I < 0.012 ng/ml 10/02/24 15:25
Data Reviewed
-
Diagnostic Radiology: Report Reviewed by me
Lab Data: Labs Reviewed by me
Old Records: Reviewed
Impression/Plan
-
Atrial Fibrillation with Rapid Ventricular Response, likely triggered by bronchitis/inhalers/steroids
-Consult Cardiology
-Continue Cardizem drip
-Continue Tikosyn
-Hold Metoprolol given significant bronchospasm on exam
-Continue Eliquis for anticoagulation
Acute Bronchitis with Reactive Airway/Bronchospasm secondary to Viral Illness
-Continue Decadron 4mg Q12H
-Continue Xopenex and Ipratropium nebs TID and q6hprn
Elevated BNP, suspect mild fluid retention due to uncontrolled heart rate and steroids
-Give single dose Lasix 40mg IV now
-Monitor Is&Os and Daily Weights
Hyperlipidemia
-Continue atorvastatin
DVT proph: Eliquis
Code Status: Full Code
[2024-10-02] MEDS: XOPENEX 1.25 MG INHALANT SOLUTION INH (20:03)
[2024-10-02] MEDS: SOLU-MEDROL PF 125 MG IV (20:04)
[2024-10-02] MEDS: CARDIZEM 10 MG IV (20:09)
[2024-10-02] MEDS: CARDIZEM 125 IV (20:13)
--- NOTE | 2024-10-02 20:36 | W.PN.UPDATE ---
Update Note
Progress Note Update
This note serves as an addendum to the H&P by knife glazer FREEMAN Mariaelena SCOTT
HPI
79F HX Prx AF, chr Eliquis and metoprolol tartrate, Tikosyn , HLD seen at ER
- pw SoB
- she was evalauted at ER 2 days ago diagnosed with bronchitis. She was sent home on PO Predniosn .
- she does have sick contacts and her grandchildren reportedly have RSV.
- no prior HX CHF
- she reports no lower extremity edema.
- no chest pain
PHX; see above
Vital Signs
Temp Pulse Resp BP Pulse Ox
98.0 F 136 21 164/91 96
10/02/24 15:11 10/02/24 20:15 10/02/24 20:15 10/02/24 20:12 10/02/24 20:15
PE
Gen: non toxic
HEENT: anicteric
Neck:supple
Lungs: b/l diffuse I/E wheeze
Cor: Fast irregular
Abdomen: soft benign
OIL PIT ATTENDANT: AAO3 , NFND
MS: no edema
Psych:nl affect
Data
nl CBC
nl CMP
NEG TPNI
pro BNP 2069
CXR: No active cardiopulmonary disease.
EKG
ATRIAL FIBRILLATION WITH RAPID VENTRICULAR RESPONSE
NONSPECIFIC ST AND T WAVE ABNORMALITY
ABNORMAL ECG
WHEN COMPARED WITH ECG OF 29-SEP-2024 09:32,
NONSPECIFIC T WAVE ABNORMALITY NOW EVIDENT IN LATERAL LEADS
04/30/23 TTE : EF 50%, mild MR, normal aortic valve, normal right heart with mod PHTN with PAP 51 mmHg
Last hospitalist admission:
DATE OF ADMISSION: 05/01/2024 - DATE OF DISCHARGE: 05/02/2024
DISCHARGE DIAGNOSES:
1. Paroxysmal atrial fibrillation
-previous flecainide therapy stopped due to ineffectiveness 06/2023
-status post pulmonary vein isolation ablation 10/08/2023
-previous Tikosyn therapy stopped post pulmonary vein isolation ablation 01/10/2024
2. Tikosyn loading 05/01/2024.
ASSESSMENT & PLAN
Acute asthmatic viral bronchitis with reactive airway and bronchospasm
Contact exposures to RSV from family members
- IV Decadron 4mg q12h
- Xopenex tid and q6h
- No indication for ABx
- hold Metoprol tartrate due to bronchospasm
Fast AF triggered by acute asthmatic viral bronchitis
- previous flecainide therapy stopped due to ineffectiveness 06/2023
- s/p PV isolation ablation 10/08/2023
- agree with Diltiazem gtt
- on dofetilide (Tikosyn) since 05/01/2024.
- Chronic AC; on Eliquis.
- Monitor serum K and Mg in AM s/p IV alsix one ose
No prior HX CHF
Essential HTN
- holding Metoprol tartrate due to bronchospasm
KATHLEEN on CPAP.
- not tolerating recently due to bronchitis
Normal CAD 04/26/2023.
HX breast cancer status post lumpectomy and radiation in 1997.
DVT Px: on [employer] Eliquis.
Code: Ful code
IVU
[2024-10-02] MEDS: LASIX 40 MG IV (20:45)
[2024-10-02] MEDS: TIKOSYN 500 MCG PO (23:16)
[2024-10-02] MEDS: LIPITOR 10 MG PO (23:17)
[2024-10-03] MEDS: TESSALON PERLES 200 MG PO ×2 (01:35→20:54)
--- NOTE | 2024-10-03 02:17 | PTCARENOTE ---
Received pt from ER into room 4043. Pt AAOx3 A Fib on the monitor. Cardizem gtt infusing @ 15 mg/hr BP stable. Call arevalo within reach.
[2024-10-03] MEDS: XOPENEX 0.63 MG INHALANT SOLUTION INH ×4 (02:26→20:10)
[2024-10-03] MEDS: ATROVENT NEBULES 0.5 MG INH ×4 (02:26→20:10)
[2024-10-03 03:34] VITALS: BMI 35.0
[2024-10-03] MEDS: MELATONIN 5 MG PO ×2 (03:52→20:54)
[2024-10-03] MEDS: CARDIZEM 125 IV ×2 (03:53→11:25)
[2024-10-03 04:03] VITALS: BP 127/60
[2024-10-03 04:50] LABS: Hematocrit 43.2 % (37.0-47.0); Hemoglobin 14.2 g/dL (12.0-16.0); Mean Corp Hgb Conc. 32.9 g/dL (33.0-37.0); Mean Corpuscular Hgb 31.2 pg (27.0-31.0); Mean Corpuscular Volume 94.9 fL (81.0-99.0); Mean Platelet Volume 10.2 fL (7.4-10.4); Platelet Count 228 10^3/uL (130-400); Red Blood Cell Count 4.55 10^6/uL (4.20-5.40); Red Cell Dist. Width 14.2 % (11.5-14.5); White Blood Cell Count 5.7 10^3/uL (4.8-10.8)
[2024-10-03 05:18] LABS: Blood Urea Nitrogen 21 mg/dl (7-17); Calcium 9.5 mg/dl (8.4-10.2); Carbon Dioxide 26 mmol/L (22-30); Chloride 102 mmol/L (98-107); Estimated Creatinine Clearance 57 ml/min; Glucose 152 mg/dl (70-99); Magnesium 2.2 mg/dl (1.6-2.3); Potassium 3.9 mmol/L (3.5-5.1); Sodium 141 mmol/L (135-145); eGFR > 60.00
[2024-10-03] MEDS: DECADRON 4 MG IV ×2 (05:55→18:00)
[2024-10-03 06:57] VITALS: BP 135/74
[2024-10-03] MEDS: ELIQUIS 5 MG PO ×2 (07:20→20:54)
[2024-10-03] MEDS: FLUSH (NSS) 1 FLUSH IV (07:21)
[2024-10-03] MEDS: TYLENOL 650 MG PO (07:30)
--- NOTE | 2024-10-03 07:31 | PTCARENOTE ---
The patient is aaox3, vss, raid afib noted on the monitor with a HR of 129. Diltiazem gtt running at 15mg/hl. She has a frequent moist productive cough with clear sputum. Her lungs are coarse with rhonchi and expiratory wheezing throughout. She
complains of of right side/flank pain amnd rates it a 5/10 on scale. She attributes the pain due to coughing. She also has bruising on her right side. She states that she used an electric massager at home to help with the discomfort. She is on
Eliquis. Tylenol given for her pain. She opted to hold off on the Tessalon Perles at this time.
[2024-10-03] MEDS: TIKOSYN 500 MCG PO (07:39)
--- NOTE | 2024-10-03 08:23 | CON.CAR ---
Addendum entered and electronically signed by Jose Carlos Simmons MD 10/03/24 10:11:
I saw and examined the patient.
The Systems Applications Programming Lead's note was reviewed and I agree with the note.
Comment:
GEN: No distress, awake, Ox3
HEENT: supple, anicteric, mmm
LUNGS: bilat wheezes/rales
CV: Irreg, S1/S2, 1/6 syst LSB, no gallop
ABD: soft, BS+, NT/ND
EXT: No edema
NEURO: Gross non-focal
SKIN: No rash
Plan:
She has a past medical history of paroxysmal atrial fibrillation status post PVI September 2023, sleep apnea, hypertension, hyperlipidemia who presents with an upper respiratory tract infection and continued episodes of symptomatic paroxysmal atrial
fibrillation.
She is chronically on Tikosyn 500 mcg every 12 and is failed flecainide. She continues to present with shortness of breath, cough, and fatigue.
She also has some mild chronic heart failure with preserved ejection fraction.
Check repeat echocardiogram. Add Lasix 20 mg daily while on steroids
Will stop Tikosyn and washout and initiate amiodarone in 72 hours. May need cardioversion prior to discharge. continue treatment for bronchitis
Continue steroids and levalbuterol.
Original Note:
Consultation
Consultation Request
Date/Time Consultation Performed: 10/03/24
Requesting Provider: Dr. Mcqueen
Performing Provider: Nahomy Mccabe PA-C for Dr. Simmons
Reason for Consultation: afib
Medical History
-
Chief Complaint: cough
History of Present Illness:
Patient is an 79 yo F with PMH of paroxysmal atrial fibrillation with history of PVI 09/2023, KATHLEEN, MVP, hypertension, hypercholesterolemia who presented to [facility] upon referral of her primary care physician due to upper respiratory
illness with significant wheezing. She reports her grandchildren are positive for RSV. She reports she has been feeling poorly over the last 4 days with significant cough. She was seen in the emergency department on Wednesday and was given steroids
and an inhaler. During this timeframe she has also noted palpitations consistent with her atrial fibrillation. Previously failed flecainide. She is chronically on Tikosyn 500 mcg every 12 hours. She reports she has had issues with brief paroxysms
of A-fib even on this medicine. She was seen by EP 05/2024 and discussed options including repeat ablation with pulsed field, however plan was to continue current dose tikosyn.
PMH:
PAF
History of PVI 09/2023
Chronic tikosyn therapy
Chronic OAC with eliquis
KATHLEEN
MVP
HTN
HLD
History of L breast cancer s/p lumpectomy 1997 and radiation
Past Medical History
Past Medical History: Other (in HPI)
Social History
Tobacco: Non-Smoker
Family History
Family History: Other (PPM in mother, afib in brother)
Allergies / Home Medications
Allergy/AdvReac Type Severity Reaction Status Date / Time
No Known Allergies Allergy Verified 10/02/24 15:13
�Medication �Instructions �Recorded �Confirmed �Type
apixaban 5 mg tablet (Eliquis) 5 mg PO BID Blood Clot 04/26/23 10/02/24 History
Prevention/Tx
atorvastatin 10 mg tablet 10 mg PO HS High Cholesterol 04/26/23 10/02/24 History
vit C 250 mg-vit E 90 mg-zinc 40 1 tab PO BID Supplement 04/26/23 10/02/24 History
mg-copper 1 [id number]
capsule (PreserVision AREDS-2)
metoprolol tartrate 75 mg tablet 75 mg PO BID 09/24/23 10/02/24 History
cholecalciferol (vitamin D3) 50 50 mcg PO DAILY 05/01/24 10/02/24 History
mcg (2,000 unit) capsule (Vitamin
D3)
dofetilide 500 mcg capsule 500 mcg PO Q12H #60 caps 05/02/24 10/02/24 Rx
(Tikosyn)
prednisone 50 mg tablet 50 mg PO DAILY #5 tabs 09/29/24 10/02/24 Rx
levalbuterol tartrate 45 2 inh inhalation R QID wheezing 10/02/24 10/02/24 History
mcg/actuation aerosol inhaler
(Xopenex HFA)
Review of Systems
-
History Source: Patient
All other systems: Negative unless noted
Physical Exam
Vital Signs
Temp Pulse Resp BP Pulse Ox
98.1 F 110 16 135/74 95
10/03/24 06:58 10/03/24 07:00 10/03/24 06:58 10/03/24 06:57 10/03/24 07:20
Lab Results
10/03/24 04:00
10/03/24 04:00
Troponin I < 0.012 ng/ml 10/02/24 15:25
Nty-M-Vavimwjgxyh Pept 2070 pg/ml 10/02/24 15:25
Physical Exam
General: No Apparent Distress and Comfortable
HEENT: Normocephalic, Anicteric and Moist Mucous Membranes
Respiratory: Wheezes and Other (dry cough)
Cardiac: S1/S2 and Irregular Rhythm
GI: Soft, Non Tender, Non Distended and Normal Bowel Sounds
Musculoskeletal: No Clubbing, No Cyanosis and No Edema
Skin: Warm and Dry
Neuro: AO x 3
Impression / Plan
-
Primary Merchant Miller: Dr. Perez
Primary EP: Dr. Workman
Assessment:
Presentation with cough, wheezing
Suspected viral URI, possible RSV as grandchildren positive
PAF, presently with RVR
History of PVI 09/2023
Chronic tikosyn therapy
Chronic OAC with eliquis
KATHLEEN
MVP
HTN
HLD
History of L breast cancer s/p lumpectomy 1997 and radiation
ECHO 04/2023: EF 50%, mild MR, dilated LA, normal right heart with moderate pulmonary hypertension, PAP 51 mmHg systolic
Plan:
-Patient presented with cough and wheezing in setting of URI. Ongoing treatment with steroids and nebs per primary service. flu negative. consider check RSV
-Cardiology consulted as patient in A-fib with RVR likely driven by above
-current HRs suboptimal in afib on IV cardizem gtt @15.
-She has been compliant with outpatient Tikosyn therapy 500 mcg every 12 hours. May need to consider transition to alternative antiarrhythmic drug therapy after washout as prior to her acute illness was also having breakthrough. she had previously
been on flecainide - consider sotalol vs amiodarone
-holding OP lopressor suspected due to wheezing
-reports compliance with eliquis as OP
-may need to consider for CV prior to DC once respiratory status improved
-would consider for repeat ablation
-proBNP 2069. CXR without acute abnormalities. was given IV lasix x1 on arrival. would hold off on additional for now and follow volume status. not on diuretic therapy as OP
-last echo from 2022, consider repeating once HRs improved
-check TSH
-trop negative x1
-d/w nursing
Data Reviewed
-
EKG: Tracing Personally Visualized and interpreted
Radiology: Report Reviewed by me
Medical Tests (Nuc Med, Echo etc): Report Reviewed by me
Labs: Labs Reviewed by me
Old Records: Reviewed
--- NOTE | 2024-10-03 11:01 | W.PN.HOSP.TC ---
Today's Communication/Plan
-
A.fib
Bronchitis
-appreciate Cards recs -repeat echo pending, add Lasix 20 mg IV daily while on steroids, DC Tikosyn and washout; initiate amiodarone in 72 hours.
-Cards started on Metoprolol 75 PO BID, monitor and wean down dilt gtt
-May need cardioversion prior to discharge.
-Check RSV
-andrey Erazona
Assessment / Plan
Assessment / Plan
[facility]
[address] [place] [address]
[phone]
CXR: No active cardiopulmonary disease.
EKG 10/02/2024
ATRIAL FIBRILLATION WITH RAPID VENTRICULAR RESPONSE
NONSPECIFIC ST AND T WAVE ABNORMALITY
ABNORMAL ECG
WHEN COMPARED WITH ECG OF 29-SEP-2024 09:32,
NONSPECIFIC T WAVE ABNORMALITY NOW EVIDENT IN LATERAL LEADS
04/30/23 TTE : EF 50%, mild MR, normal aortic valve, normal right heart with mod PHTN with PAP 51 mmHg
Last hospitalist admission:
DATE OF ADMISSION: 05/01/2024 - DATE OF DISCHARGE: 05/02/2024
DISCHARGE DIAGNOSES:
1. Paroxysmal atrial fibrillation
-previous flecainide therapy stopped due to ineffectiveness 06/2023
-status post pulmonary vein isolation ablation 10/08/2023
-previous Tikosyn therapy stopped post pulmonary vein isolation ablation 01/10/2024
2. Tikosyn loading 05/01/2024.
ASSESSMENT & PLAN
#Acute asthmatic viral bronchitis with reactive airway and bronchospasm
#Contact exposures to RSV from family members
- IV Decadron 4mg q12h - significant wheeze
-check viral panel
- Xopenex tid and q6h
- No indication for ABx , continue off
- Metoprolol tartrate added back by cardiology, cont to monitor on BB
#Afib with RVR triggered by acute asthmatic viral bronchitis
- previous flecainide therapy stopped due to ineffectiveness 06/2023
- s/p PV isolation ablation 10/08/2023
- continue Diltiazem gtt and wean per protocol
- DC (Tikosyn) (on initially since 05/01/2024)
- Chronic AC; on Eliquis-continue
- Monitor serum K and Mg in AM s/p IV Lasix once 10/02
-Lasix 20 mg IV daily
-appreciate Cards recs -repeat echo pending, add Lasix 20 mg daily while on steroids, DC Tikosyn and washout; added back metoprolol, initiate amiodarone in 72 hours.
-May need cardioversion prior to discharge.
No prior HX CHF
#Constipation
-colace, senna
Essential HTN
- holding Metoprol tartrate due to bronchospasm
KATHLEEN on CPAP.
- not tolerating recently due to bronchitis
Normal CAD 04/26/2023.
HX breast cancer status post lumpectomy and radiation in 1997.
DVT Px: on SOAP DRIER TENDER Eliquis.
Code: Full code
IVU
Anticipated Discharge: > 48 hours
Subjective/Interval History
-
Date of Service: October 03, 2024
Pt feeling somewhat improved today-still with significant wheezing, No CP, no palpitations, no dizziness, unable to sleep last night, A.fib w RVR, Dilt at 15
Objective Data
-
Labs:
Laboratory Results
10/03/24
04:00
WBC 5.7
Hgb 14.2
Hct 43.2
Plt Count 228
Sodium 141
Potassium 3.9
Chloride 102
Carbon Dioxide 26
BUN 21 H
Creatinine 0.8
Glucose 152 H
Calcium 9.5
Vital Signs:
Vital Signs
Temp Pulse Resp BP Pulse Ox
98.1 F 112 20 135/74 98
10/03/24 06:58 10/03/24 08:52 10/03/24 08:52 10/03/24 06:57 10/03/24 08:52
I&O
10/02/24 10/03/24 10/04/24
06:59 06:59 06:59
Intake Total 150 / 150
Balance 150 / 150
Review of Systems
-
History Source: Patient
All other systems: Reviewed and negative
Physical Exam
-
General: Well Developed, Well Nourished and No Apparent Distress
HEENT: Normocephalic and Atraumatic
Respiratory: Wheezes (diffuse b/l)
Cardiac: S1/S2 and Irregular Rhythm
GI: Soft, Nontender, Nondistended and Normal Bowel Sounds
Musculoskeletal: No Clubbing, No Cyanosis and No Edema
Skin: Warm and Dry
Neuro: AO x 3 and No Motor Deficits
Psych: Calm
Data Reviewed
-
Diagnostic Radiology: Image personally visualized and interpreted and Report Reviewed by me
Medical Tests (Nuc Med, Echo etc): Image personally visualized and interpreted and Report Reviewed by me
Labs: Labs Reviewed by me
--- NOTE | 2024-10-03 11:16 | CM ---
Chart reviewed. Patient is independent of ADLS, lives with her daughter in a [address], patient has 1st floor set up, 2 RASHEED, 0 DME. Plan is for the patient to return home. CM to follow
[2024-10-03 11:24] LABS: TSH Reflex To Free T4 0.06 uIU/ml (0.47-4.68)
[2024-10-03] MEDS: LOPRESSOR 75 MG PO ×2 (11:25→20:52)
[2024-10-03 11:30] VITALS: BP 140/59
[2024-10-03] MEDS: SENNA SYRUP 8.8 MG PO (11:49)
[2024-10-03] MEDS: COLACE 100 MG PO ×2 (11:49→20:53)
[2024-10-03] MEDS: LASIX 20 MG IV (11:49)
[2024-10-03] MEDS: FLUSH (NSS) 2 FLUSH IV ×2 (11:50→18:00)
[2024-10-03 11:57] LABS: Free T4 1.61 ng/dl (0.78-2.19)
--- NOTE | 2024-10-03 12:08 | PTCARENOTE ---
Addendum entered by Sujey Aranda RN 10/03/24 12:50:
Converted back to NSR at 1231
Addendum entered by Sujey Aranda RN 10/03/24 12:28:
She's back in afib
Original Note:
The patient converted to NSS at 1055, notified Nahomy Mccabe.
--- NOTE | 2024-10-03 13:32 | PTCARENOTE ---
Cardizem gtt decreased to 5mg/hr for HRs in the 40s per Nahomy Mccabe.
[2024-10-03 15:09] VITALS: BP 114/63
[2024-10-03 20:06] VITALS: BP 106/64
[2024-10-03] MEDS: LIPITOR 10 MG PO (20:54)
[2024-10-03 22:46] VITALS: BP 110/53
[2024-10-04] VITALS (7 sets, daily range): BP systolic 109–135; BP diastolic 56–99; BMI 35.0
--- NOTE | 2024-10-04 03:00 | PTCARENOTE ---
Pt received at change of shift. SR/SB on tele with HRs ranging from 55-80s. Cardizem currently infusing at 5mg/hr. Pt denies CP and has SOB only with ambulation. Tessalon administered per order for frequent cough. Ambulating independently in room
without difficulty. Call arevalo within reach.
[2024-10-04] MEDS: DECADRON 4 MG IV ×2 (05:16→18:28)
[2024-10-04 05:23] LABS: Hematocrit 38.9 % (37.0-47.0); Hemoglobin 12.4 g/dL (12.0-16.0); Mean Corp Hgb Conc. 31.9 g/dL (33.0-37.0); Mean Corpuscular Hgb 29.9 pg (27.0-31.0); Mean Corpuscular Volume 93.7 fL (81.0-99.0); Platelet Count 234 10^3/uL (130-400); Red Blood Cell Count 4.15 10^6/uL (4.20-5.40); Red Cell Dist. Width 14.4 % (11.5-14.5); White Blood Cell Count 6.9 10^3/uL (4.8-10.8)
[2024-10-04 05:49] LABS: Blood Urea Nitrogen 47 mg/dl (7-17); Calcium 9.7 mg/dl (8.4-10.2); Carbon Dioxide 26 mmol/L (22-30); Chloride 100 mmol/L (98-107); Estimated Creatinine Clearance 46 ml/min; Glucose 138 mg/dl (70-99); Potassium 3.8 mmol/L (3.5-5.1); Sodium 137 mmol/L (135-145); eGFR 56.95
[2024-10-04] MEDS: LASIX 20 MG IV (07:40)
[2024-10-04] MEDS: LOPRESSOR 75 MG PO ×2 (07:40→21:04)
[2024-10-04] MEDS: COLACE 100 MG PO ×2 (07:40→21:03)
[2024-10-04] MEDS: ELIQUIS 5 MG PO ×2 (07:40→21:03)
[2024-10-04] MEDS: FLUSH (NSS) 2 FLUSH IV ×2 (07:41→18:28)
--- NOTE | 2024-10-04 07:49 | PTCARENOTE ---
The patient is aaox3, vss, rapid afib on the monitor with HRs in the 120s. Lungs sound are coarse with scattered expiratory wheezing throughout. She states that her leg pain has improved since she has been on the Lasix. In addition her dyspnea has
also improved. Her only complaint is overall weakness and wanting to have a BM.
--- NOTE | 2024-10-04 08:05 | W.PN.CARDCBS ---
Addendum entered and electronically signed by Jose Carlso Simmons MD 10/04/24 09:58:
I saw and examined the patient.
The News Writer's note was reviewed and I agree with the note.
Comment:
GEN: No distress, awake, Ox3
HEENT: supple, anicteric, mmm
LUNGS: faint wheeze
CV: Irreg, S1/S2, 10/02 syst LSB, no gallop
ABD: soft, BS+, NT/ND
EXT: No edema
NEURO: Gross non-focal
SKIN: No rash
plan:
Having some more A-fib. Now having a Tikosyn washout. Plan to start amiodarone October 06. Will need to follow and watch for thyroid abnormalities.
Hold Lasix due to elevated creatinine. Follow volume status.
Continue Lopressor and Eliquis.
Remains on low-dose Cardizem drip for now.
Continue steroids and nebulizers for bronchitis
Original Note:
Today's Communication / Plan
-
Tikosyn washout. Plan to start amiodarone on Friday 10/06
Continue Lopressor, Eliquis
Stop Lasix due to bump in creatinine. Follow volume status
TSH low�defer if needs treatment to primary service
Outpatient EP eval for repeat ablation
Impression / Plan
-
Primary Annealing Furnace Tender: Dr. Perez
Primary EP: Dr. Workman
Assessment:
Presentation with cough, wheezing
Suspected viral URI, possible RSV as grandchildren positive
PAF, presently with RVR
History of PVI 09/2023
Chronic tikosyn therapy
Chronic OAC with eliquis
KATHLEEN
MVP
HTN
HLD
History of L breast cancer s/p lumpectomy 1997 and radiation
ECHO 04/2023: EF 50%, mild MR, dilated LA, normal right heart with moderate pulmonary hypertension, PAP 51 mmHg systolic
ECHO 10/03/24: EF 55 to 60%, moderate biatrial dilation, mild MR, mild to moderate TR, PAP 40 to 45 mmHg
Plan:
-she reports breathing and cough is improving. remains with wheezing on exam. continue treatment per primary service. sick contacts positive for RSV
-remains with paroxysms of afib. washing out tikosyn with plan to start amiodarone Wednesday (72 hour washout). plan for short term amio with EP eval to discuss options including repeat ablation
-continue IV cardizem @5, lopressor 75mg BID
-reports compliance with eliquis as OP
-reports improvement with IV lasix 20mg daily, leg discomfort resolved. Cr bumped to 1.0 today. will hold moving forward. was not on diuretic therapy as OP, may consider p.o. Lasix 20 mg as needed as outpatient for weight gain or shortness of breath
-Echo with results as above, no significant change compared to prior
-Of note TSH low at 0.06 with compensated free T4. Defer treatment to primary service. Patient reports she does have history of thyroid nodules which were biopsied and felt to be benign. If hyperthyroid, could be contributing to atrial arrhythmia
-d/w nursing
Progress Note - Annealing Furnace Tender
Subjective
Date of Service: October 04, 2024
Reports feeling better overnight. Less coughing
Objective
Labs:
10/04/24 04:55
10/04/24 04:55
Labs
Hgb 12.4 g/dL (12.0-16.0) 10/04/24 04:55
Hct 38.9 % (37.0-47.0) 10/04/24 04:55
Plt Count 234 10^3/uL (130-400) 10/04/24 04:55
Sodium 137 mmol/L (135-145) 10/04/24 04:55
Potassium 3.8 mmol/L (3.5-5.1) 10/04/24 04:55
BUN 47 mg/dl (7-17) H 10/04/24 04:55
Creatinine 1.0 mg/dL (0.6-1.0) 10/04/24 04:55
Glucose 138 mg/dl (70-99) H 10/04/24 04:55
Troponins
10/02/24
15:25
Troponin I < 0.012
Vital Signs and I&O:
Vital Signs
Temp Pulse Resp BP Pulse Ox
97.6 F 120 20 128/93 92
10/04/24 07:37 10/04/24 07:37 10/04/24 07:37 10/04/24 07:37 10/04/24 07:37
Vital Signs
Temp Pulse Resp BP Pulse Ox
97.6 F 120 20 128/93 92
10/04/24 07:37 10/04/24 07:37 10/04/24 07:37 10/04/24 07:37 10/04/24 07:37
Intake & Output
10/02/24 10/03/24 10/04/24 10/05/24
07:59 07:59 07:59 07:59
Intake Total 150 / 150
Output Total 1500 / 1500
Balance 150 / 150 -1500 / -1500
Physical Exam
Physical Exam
GEN: No distress, awake, alert, oriented x3
HEENT: supple, anicteric, mmm, EOMI
LUNGS: Wheezing bilaterally
CV: Irreg, S1/S2, no murmur
ABD: soft, BS+, NT/ND
EXT: No cyanosis, clubbing, edema
NEURO: Gross non-focal
SKIN: Warm, pink, dry. No rash
[2024-10-04] MEDS: ATROVENT NEBULES 0.5 MG INH ×3 (08:07→21:04)
[2024-10-04] MEDS: XOPENEX 0.63 MG INHALANT SOLUTION INH ×3 (08:07→21:04)
--- NOTE | 2024-10-04 09:29 | W.PN.HOSP.TC ---
Today's Communication/Plan
-
steroids
bronchodilators
rate control as per Cardio
Tikosyn washout
Assessment / Plan
Assessment / Plan
Physical Exam
General: No Apparent Distress, appears comfortable at this time
HEENT: Normocephalic and Atraumatic
Respiratory:clear to auscultation b/l
Cardiac: S1/S2 and Irregular Rhythm
GI: Soft, Nontender, Nondistended and Normal Bowel Sounds
Musculoskeletal: No Clubbing, No Cyanosis and No Edema
Skin: Warm and Dry
Neuro: AO x 3 and No Motor Deficits
Psych: Calm
ASSESSMENT & PLAN
79F pAfib HTN HLD Breast Ca Lumpectomy Radiation Obesity KATHLEEN here for Bronchitis and Uncontrolled Afib
#Acute asthmatic viral bronchitis with reactive airway and bronchospasm
#Contact exposures to RSV from family members (though RSV neg)
- IV Decadron 4mg q12h
- RSV neg, Flu neg, COVID neg
- Xopenex tid and q6h
- Metoprolol as per cardio
#Afib with RVR triggered by acute asthmatic viral bronchitis
- previous flecainide therapy stopped due to ineffectiveness 06/2023
- s/p PV isolation ablation 10/08/2023
- continue Diltiazem gtt and wean per protocol
- DC (Tikosyn) (on initially since 05/01/2024)
- Chronic AC; on Eliquis-continue
- cardio eval appreciated Tikosyn washout, Amiodarone to start 10/06, Lasix on hold
- ECHO appreciated EF 55-60% no significant change from prior ECHO 10/06/23
No prior HX CHF
#Constipation
-colace, senna
Essential HTN
- cont cardizem gtt, metoprolol
KATHLEEN on CPAP.
- not tolerating recently due to bronchitis
Normal CAD 04/26/2023.
HX breast cancer status post lumpectomy and radiation in 1997.
DVT Px: on RECRUIT INSTRUCTOR Eliquis.
Code: Full code
Discussed with patient and daughter Caitlin
I spent a total of 50 minutes with the patient or on the floor. More than 50% of this time involved counseling and coordination of care.
Anticipated Discharge: 24 - 48 hours
Subjective/Interval History
-
Date of Service: October 04, 2024
No acute distress sitting up comfortably in Bed. Reports overall feeling well. Endorses some palpitation earlier in the morning since resolved. Daughter Caitlin present during evaluation
Objective Data
-
Labs:
Laboratory Results
10/04/24
04:55
WBC 6.9
Hgb 12.4
Hct 38.9
Plt Count 234
Sodium 137
Potassium 3.8
Chloride 100
Carbon Dioxide 26
BUN 47 H
Creatinine 1.0
Glucose 138 H
Calcium 9.7
Vital Signs:
Vital Signs
Temp Pulse Resp BP Pulse Ox
97.6 F 112 18 128/93 94
10/04/24 07:37 10/04/24 08:10 10/04/24 08:10 10/04/24 07:37 10/04/24 08:10
I&O
10/03/24 10/04/24 10/05/24
06:59 06:59 06:59
Intake Total 150 / 150
Output Total 1100 / 1100 400 / 400
Balance 150 / 150 -1100 / -1100 -400 / -400
--- NOTE | 2024-10-04 11:24 | CM ---
Chart reviewed. Patient on a Tikosyn washout with the plan to start amiodarone on 10/06. Patient is independent of ADLS, lives with his daughter in a [address], 1st floor set up, 2 RASHEED, 0 DME. Plan is for the patient to return home. CM to follow
[2024-10-04] MEDS: CARDIZEM 125 IV (13:49)
[2024-10-04] MEDS: MELATONIN 5 MG PO (21:03)
[2024-10-04] MEDS: TESSALON PERLES 200 MG PO (21:04)
[2024-10-04] MEDS: LIPITOR 10 MG PO (21:04)
[2024-10-04] MEDS: TYLENOL 650 MG PO (22:48)
[2024-10-05] VITALS (7 sets, daily range): BP systolic 115–165; BP diastolic 68–128; BMI 34.9
--- NOTE | 2024-10-05 02:23 | PTCARENOTE ---
Assumed care of pt at change of shift. Afib on tele with HR 80s-90s at rest and 120s with ambulation. Cardizem gtt currently infusing at 5mg/hr. Pt with some complaints of a dry cough, PRN Tessalon administered per orders, see MAR. Ambulating
independently in room without difficulty. Overall pt states she feels much improved from yesterday. Call arevalo within reach.
[2024-10-05 05:05] LABS: Blood Urea Nitrogen 46 mg/dl (7-17); Calcium 10.1 mg/dl (8.4-10.2); Carbon Dioxide 27 mmol/L (22-30); Chloride 99 mmol/L (98-107); Estimated Creatinine Clearance 51 ml/min; Glucose 142 mg/dl (70-99); Magnesium 2.5 mg/dl (1.6-2.3); Phosphorus 4.7 mg/dl (2.5-4.5); Potassium 3.9 mmol/L (3.5-5.1); Sodium 138 mmol/L (135-145); eGFR > 60.00
[2024-10-05 05:11] LABS: Hemoglobin 14.3 g/dL (12.0-16.0); Mean Corp Hgb Conc. 33.3 g/dL (33.0-37.0); Mean Corpuscular Hgb 30.5 pg (27.0-31.0); Mean Corpuscular Volume 91.7 fL (81.0-99.0); Mean Platelet Volume 9.9 fL (7.4-10.4); Platelet Count 282 10^3/uL (130-400); Red Blood Cell Count 4.69 10^6/uL (4.20-5.40); Red Cell Dist. Width 14.4 % (11.5-14.5); White Blood Cell Count 9.9 10^3/uL (4.8-10.8)
--- NOTE | 2024-10-05 06:41 | W.PN.HOSP.TC ---
Addendum entered and electronically signed by Gal Nunes MD 10/06/24 07:37:
Possible Mild acute vs chronic HFpEF
-received diuretics, currently off
Original Note:
Today's Communication/Plan
-
cont rate rhythm control as per cardiology
steroid tapered to prednisone
follow up nocturnal oxygenation study
Assessment / Plan
Assessment / Plan
Physical Exam
General: No Apparent Distress, appears comfortable at this time
HEENT: Normocephalic and Atraumatic
Respiratory:mild wheezing
Cardiac: S1/S2 and Irregular Rhythm
GI: Soft, Nontender, Nondistended and Normal Bowel Sounds
Musculoskeletal: No Clubbing, No Cyanosis and No Edema
Skin: Warm and Dry
Neuro: AO x 3 and No Motor Deficits
Psych: Calm
ASSESSMENT & PLAN
79F pAfib HTN HLD Breast Ca Lumpectomy Radiation Obesity KATHLEEN here for Bronchitis and Uncontrolled Afib
#Acute asthmatic viral bronchitis with reactive airway and bronchospasm
#Contact exposures to RSV from family members (though RSV neg)
- IV Decadron 4mg q12h
- RSV neg, Flu neg, COVID neg
- Xopenex tid and prn
Nocturnal Dyspnea ameliorated with nasal cannula supplementation
-follow up Nocturnal Oxygenation Study
#Afib with RVR triggered by acute asthmatic viral bronchitis
- previous flecainide therapy stopped due to ineffectiveness 06/2023
- s/p PV isolation ablation 10/08/2023
- continue Diltiazem gtt Metoprolol as per Cardio
- DC (Tikosyn) (on initially since 05/01/2024)
- Chronic AC; on Eliquis-continue
- cardio eval appreciated Tikosyn washout, Amiodarone to start 10/06, Lasix on hold
- ECHO appreciated EF 55-60% no significant change from prior ECHO 10/06/23
#Abnormal Thyroid Function Test
TSH low but T4 Wnl suspect sick euthyroid syndrome vs possible steroid suppression TSH
recommend repeating TFT in a month with primary care provider
No prior HX CHF
#Constipation
-colace, senna
Essential HTN
- cont cardizem gtt, metoprolol
KATHLEEN on CPAP.
- not tolerating recently due to bronchitis
Normal CAD 04/26/2023.
HX breast cancer status post lumpectomy and radiation in 1997.
DVT Px: on FUR GLOSSER Eliquis.
Code: Full code
I spent a total of 50 minutes with the patient or on the floor. More than 50% of this time involved counseling and coordination of care.
Anticipated Discharge: 24 - 48 hours
Subjective/Interval History
-
Date of Service: October 05, 2024
Seen and examined at bedside in no acute distress sitting up comfortably in bed. Overall reports feeling well but short of breath overnight requiring oxygen to help her sleep. Stable respiratory status on room air during day.
Objective Data
-
Labs:
Laboratory Results
10/05/24
04:08
WBC 9.9
Hgb 14.3
Hct 43.0
Plt Count 282 D
Sodium 138
Potassium 3.9
Chloride 99
Carbon Dioxide 27
BUN 46 H
Creatinine 0.9
Glucose 142 H
Calcium 10.1
Vital Signs:
Vital Signs
Temp Pulse Resp BP Pulse Ox
97.5 F 116 20 109/63 93
10/05/24 04:09 10/04/24 21:11 10/05/24 04:09 10/04/24 21:04 10/05/24 04:09
I&O
10/03/24 10/04/24 10/05/24
06:59 06:59 06:59
Intake Total 150 / 150 480 / 480
Output Total 1100 / 1100 1750 / 1750
Balance 150 / 150 -1100 / -1100 -1270 / -1270
[2024-10-05] MEDS: DECADRON 4 MG IV (06:43)
[2024-10-05] MEDS: ATROVENT NEBULES 0.5 MG INH ×3 (07:21→19:29)
[2024-10-05] MEDS: XOPENEX 0.63 MG INHALANT SOLUTION INH ×3 (07:21→19:30)
--- NOTE | 2024-10-05 08:17 | W.PN.CARDCBS ---
Addendum entered and electronically signed by Jose Carlos Simmons MD 10/05/24 12:32:
I saw and examined the patient.
The Licensed Land Surveyor's note was reviewed and I agree with the note.
Comment:
GEN: No distress, awake, Ox3
HEENT: supple, anicteric, mmm
LUNGS: CTA, no wheezes/rales
CV: Irreg, S1/S2, 1/ syst LSB, no murmur
ABD: soft, BS+, NT/ND
EXT: No edema
NEURO: Gross non-focal
SKIN: No rash
Plan:
Continue Tikosyn washout. Still having paroxysms of atrial fibrillation. Start amiodarone in AM.
Continue Eliquis and Lopressor. Will wean off Cardizem over next 24 hours.
Will need outpatient evaluation for ablation.
Would discharge on Lasix 20 mg Wednesday
Original Note:
Today's Communication / Plan
-
plan to start amio 10/06 after 72 hour tikosyn washout
continue IV cardizem, lopressor, eliquis
consider po lasix 20mg MWF as OP
assessment per primary service for nocturnal home O2.
OP EP eval to discuss repeat ablation
Impression / Plan
-
Primary Assistant Director Of Security: Dr. Perez
Primary EP: Dr. Workman
Assessment:
Presentation with cough, wheezing
Suspected viral URI, possible RSV as grandchildren positive
PAF, presently with RVR
History of PVI 09/2023
Chronic tikosyn therapy
Chronic OAC with eliquis
KATHLEEN
MVP
HTN
HLD
History of L breast cancer s/p lumpectomy 1997 and radiation
ECHO 04/2023: EF 50%, mild MR, dilated LA, normal right heart with moderate pulmonary hypertension, PAP 51 mmHg systolic
ECHO 10/03/24: EF 55 to 60%, moderate biatrial dilation, mild MR, mild to moderate TR, PAP 40 to 45 mmHg
Plan:
-continued improvement in breathing/cough, however remains with wheezing.
-remains with paroxysms of afib on review of tele. continue 72 hour tikosyn washout with plan to start amiodarone Friday 10/06. plan for short term amio with EP eval to discuss options including repeat ablation
-continue IV cardizem @5, lopressor 75mg BID
-reports compliance with eliquis as OP, continue
-received IV lasix earlier in admission with some improvement however then had bump in BUN/Cr. was not on diuretic therapy as OP, may consider p.o. Lasix 20 mg MWF as outpatient
-Echo with results as above, no significant change compared to prior
-Of note TSH low at 0.06 with compensated free T4. Defer treatment to primary service. Patient reports she does have history of thyroid nodules which were biopsied and felt to be benign. If hyperthyroid, could be contributing to atrial arrhythmia
-she reports a history of sleep apnea however has been unable to tolerate CPAP. she reports feeling much better with HS oxygen. assessment per primary service for nocturnal home O2.
Progress Note - Assistant Director Of Security
Subjective
Date of Service: October 05, 2024
continued improvement. remains with wheezing
Objective
Labs:
10/05/24 04:08
10/05/24 04:08
Labs
Hgb 14.3 g/dL (12.0-16.0) 10/05/24 04:08
Hct 43.0 % (37.0-47.0) 10/05/24 04:08
Plt Count 282 10^3/uL (130-400) D 10/05/24 04:08
Sodium 138 mmol/L (135-145) 10/05/24 04:08
Potassium 3.9 mmol/L (3.5-5.1) 10/05/24 04:08
BUN 46 mg/dl (7-17) H 10/05/24 04:08
Creatinine 0.9 mg/dL (0.6-1.0) 10/05/24 04:08
Glucose 142 mg/dl (70-99) H 10/05/24 04:08
Troponins
10/02/24
15:25
Troponin I < 0.012
Vital Signs and I&O:
Vital Signs
Temp Pulse Resp BP Pulse Ox
97.4 F 96 20 125/68 94
10/05/24 07:38 10/05/24 07:43 10/05/24 07:38 10/05/24 07:43 10/05/24 07:40
Vital Signs
Temp Pulse Resp BP Pulse Ox
97.4 F 96 20 125/68 94
10/05/24 07:38 10/05/24 07:43 10/05/24 07:38 10/05/24 07:43 10/05/24 07:40
Intake & Output
10/03/24 10/04/24 10/05/24 10/06/24
07:59 07:59 07:59 07:59
Intake Total 150 / 150 480 / 480
Output Total 1500 / 1500 1350 / 1350
Balance 150 / 150 -1500 / -1500 -870 / -870
Physical Exam
Physical Exam
GEN: No distress, awake, alert, oriented x3
HEENT: supple, anicteric, mmm, EOMI
LUNGS: Wheezing bilaterally, overall improving
CV: Irreg, S1/S2, no murmur
ABD: soft, BS+, NT/ND
EXT: No cyanosis, clubbing, edema
NEURO: Gross non-focal
SKIN: Warm, pink, dry. No rash
[2024-10-05] MEDS: ELIQUIS 5 MG PO ×2 (08:33→20:39)
[2024-10-05] MEDS: COLACE 100 MG PO ×2 (08:33→20:38)
[2024-10-05] MEDS: LOPRESSOR 75 MG PO ×2 (08:34→20:38)
--- NOTE | 2024-10-05 11:00 | CM ---
Chart reviewed. Patient is independent of ADLS, lives with her daughter in a 3 S[address], 2 RASHEED, 0 DME. Patient has a 1st floor set up. Patient wears CPAP at home overnight and has [facility]. Patient has not been using the CPAP 2/2
to discomfort and has been using night Oxygen instead. Call placed to [employer] to see what patient will need to be set up if possible with nocturnal oxygen. CM to follow
[2024-10-05] MEDS: DELTASONE 40 MG PO (11:07)
[2024-10-05] MEDS: TYLENOL 650 MG PO (11:14)
[2024-10-05] MEDS: CARDIZEM 125 IV (12:50)
--- NOTE | 2024-10-05 14:14 | PN.CDI ---
CDI
- -
CDI:
Physician Documentation Request
Admit Date: 10/02/24 20:46
Dear Doctor Manju,
Clinical Indicators:
Patient admitted with acute asthmatic viral bronchitis, presenting in AF with RVR.
10/03 Cardiology consult, 'She also has some mild chronic heart failure with preserved ejection fraction.'
10/04 PN, 'No prior HX CHF'
Lasix 40 mg IV x 1 (10/02) Lasix 20 mg IV (10/03, 10/04 )
BNP on admission:
10/02/24
15:25
[id number] Pept [id number]
Due to potentially conflicting documentation, please clarify the most likely acuity of CHF you are evaluating, treating or monitoring.
Acute on chronic HFpEF
Chronic HFpEF
HFpEF is ruled out
Use of terms such as suspected, likely, concern for, or probable (associated with a specific diagnosis that is being evaluated, monitored, or treated as if it exists) are acceptable and can be coded in the inpatient setting, when documented at the
time of discharge.
Thank you,
Brenda Rocha RN BSN
CDI Specialist
available via tiger text
Please use your independent medical judgment in providing your response.
[2024-10-05] MEDS: MELATONIN 5 MG PO (22:21)
[2024-10-05] MEDS: LIPITOR 10 MG PO (22:21)
[2024-10-06] VITALS (8 sets, daily range): BP systolic 107–144; BP diastolic 66–110; BMI 35.4
[2024-10-06] MEDS: TESSALON PERLES 200 MG PO ×2 (00:02→23:38)
--- NOTE | 2024-10-06 02:27 | PTCARENOTE ---
Assumed care of the pt @ 1900 AAOx3 A fib 80's on the monitor Cardizem infusing@ 5mg/HR VSS. Lungs exp wheezes on cont pox overnight. Pt ambulates to bathroom without difficulty.
[2024-10-06] MEDS: TYLENOL 650 MG PO (03:27)
[2024-10-06 05:18] LABS: Hematocrit 42.5 % (37.0-47.0); Hemoglobin 13.9 g/dL (12.0-16.0); Mean Corp Hgb Conc. 32.7 g/dL (33.0-37.0); Mean Corpuscular Hgb 30.6 pg (27.0-31.0); Mean Corpuscular Volume 93.6 fL (81.0-99.0); Mean Platelet Volume 9.8 fL (7.4-10.4); Platelet Count 269 10^3/uL (130-400); Red Blood Cell Count 4.54 10^6/uL (4.20-5.40); Red Cell Dist. Width 14.2 % (11.5-14.5); White Blood Cell Count 10.1 10^3/uL (4.8-10.8)
[2024-10-06 05:43] LABS: Blood Urea Nitrogen 45 mg/dl (7-17); Calcium 9.7 mg/dl (8.4-10.2); Carbon Dioxide 28 mmol/L (22-30); Chloride 99 mmol/L (98-107); Estimated Creatinine Clearance 51 ml/min; Glucose 126 mg/dl (70-99); Magnesium 2.5 mg/dl (1.6-2.3); Phosphorus 3.6 mg/dl (2.5-4.5); Potassium 4.4 mmol/L (3.5-5.1); Sodium 137 mmol/L (135-145); eGFR > 60.00
--- NOTE | 2024-10-06 06:53 | W.PN.HOSP.TC ---
Today's Communication/Plan
-
cont rate rhythm control as per cardiology
cont prednisone
Qualifies for Bedtime Oxygen supplementation
Assessment / Plan
Assessment / Plan
Physical Exam
General: No Apparent Distress, appears comfortable at this time
HEENT: Normocephalic and Atraumatic
Respiratory:mild wheezing
Cardiac: S1/S2 and Irregular Rhythm
GI: Soft, Nontender, Nondistended and Normal Bowel Sounds
Musculoskeletal: No Clubbing, No Cyanosis and No Edema
Skin: Warm and Dry
Neuro: AO x 3 and No Motor Deficits
Psych: Calm
ASSESSMENT & PLAN
79F pAfib HTN HLD Breast Ca Lumpectomy Radiation Obesity KATHLEEN here for Bronchitis and Uncontrolled Afib
#Acute asthmatic viral bronchitis with reactive airway and bronchospasm
#Contact exposures to RSV from family members (though RSV neg possible false neg)
- IV Decadron 4mg q12h tapered to Prednisone 40 mg daily
- RSV neg, Flu neg, COVID neg
- Xopenex tid and prn
#Afib with RVR triggered by acute asthmatic viral bronchitis
- previous flecainide therapy stopped due to ineffectiveness 06/2023
- s/p PV isolation ablation 10/08/2023
- continue Diltiazem gtt Metoprolol as per Cardio
- DC (Tikosyn) (on initially since 05/01/2024)
- Chronic AC; on Eliquis-continue
- cardio eval appreciated Tikosyn washout, Amiodarone to start 10/06, Lasix on hold
- ECHO appreciated EF 55-60% no significant change from prior ECHO 10/06/23
#Abnormal Thyroid Function Test
TSH low but T4 Wnl suspect sick euthyroid syndrome vs possible steroid suppression TSH
recommend repeating TFT in a month with primary care provider
#No prior HX CHF
Possible Mild acute vs chronic HFpEF
-received diuretics, currently off
-patient to start PO Lasix 20 mg MWF as per Cardio
#Constipation
-colace, senna
#Essential HTN
- cont cardizem gtt, metoprolol as per cardio
#KATHLEEN on CPAP.
- not tolerating CPAP at home
#Nocturnal Desaturation/Nocturnal Dyspnea ameliorated with nasal cannula supplementation
-Discussed patient's nocturnal oxygenation study result with Pulmonary paper cone machine operator. Per discussion, with accumulated time 2min 28 sec hypoxia <89%, patient qualifies for Bedtime Supplemental Oxygen 2L to maintain saturations overnight and promote good
sleep- overall beneficial to patient's health.
-Discussed with patient to discontinue further CPAP use in favor of bedtime Nasal cannula oxygen supplementation for the time being pending further evaluation treatment outpatient pulmonology. Patient able to verbalize understanding of above
recommendation and her agreement with plan.
-case mgmt consult appreciated Bedtime Oxygen Supplementation set up on discharge
Normal CAD 04/26/2023.
HX breast cancer status post lumpectomy and radiation in 1997.
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
Code: Full code
I spent a total of 50 minutes with the patient or on the floor. More than 50% of this time involved counseling and coordination of care.
Anticipated Discharge: 24 - 48 hours
Subjective/Interval History
-
Date of Service: October 06, 2024
Seen and examined at bedside in no acute distress sitting up comfortably in bed. Wheezing persists though mild. Stable respiratory status on room air.
Objective Data
-
Labs:
Laboratory Results
10/06/24
04:57
WBC 10.1
Hgb 13.9
Hct 42.5
Plt Count 269
Sodium 137
Potassium 4.4
Chloride 99
Carbon Dioxide 28
BUN 45 H
Creatinine 0.9
Glucose 126 H
Calcium 9.7
Vital Signs:
Vital Signs
Temp Pulse Resp BP Pulse Ox
97.9 F 95 16 130/93 95
10/06/24 03:28 10/06/24 03:28 10/06/24 03:28 10/06/24 03:21 10/06/24 03:28
I&O
10/04/24 10/05/24 10/06/24
06:59 06:59 06:59
Intake Total 480 / 480
Output Total 1100 / 1100 1750 / 1750 1350 / 1350
Balance -1100 / -1100 -1270 / -1270 -1350 / -1350
[2024-10-06] MEDS: COLACE 100 MG PO ×2 (08:18→20:11)
[2024-10-06] MEDS: ELIQUIS 5 MG PO ×2 (08:18→20:11)
[2024-10-06] MEDS: PACERONE 200 MG PO ×3 (08:18→22:03)
[2024-10-06] MEDS: LOPRESSOR 75 MG PO ×2 (08:19→20:12)
[2024-10-06] MEDS: ATROVENT NEBULES 0.5 MG INH ×3 (08:20→18:09)
[2024-10-06] MEDS: XOPENEX 0.63 MG INHALANT SOLUTION INH ×4 (08:21→22:29)
[2024-10-06] MEDS: DELTASONE 40 MG PO (08:23)
--- NOTE | 2024-10-06 11:09 | W.PN.UPDATE ---
Addendum entered and electronically signed by Gal Nunes MD 10/06/24 16:28:
discussed with patient to discontinue further CPAP use in favor of bedtime Nasal cannula oxygen supplementation for the time being pending further evaluation treatment outpatient pulmonology.
Patient able to verbalize understanding of above recommendation and her agreement with plan.
Original Note:
Update Note
Progress Note Update
Discussed patient's nocturnal oxygenation study result with Pulmonary religious education director.
Per discussion, with accumulated time 2min 28 sec hypoxia <89%, patient qualifies for Bedtime Supplemental Oxygen 2L to maintain saturations overnight and promote good sleep- overall beneficial to patient's health.
--- NOTE | 2024-10-06 11:40 | CM ---
Addendum entered by Mitzi Vides RN 10/06/24 17:00:
I spoke to Manuel at [phone] from [employer] and he confirmed all information that was needed was sent.
Original Note:
Chart reviewed. Patient is independent of ADLS, lives with her daughter in a 3 STH, 2 RASHEED, 0 DME. Patient has a 1st floor set up. Patient has CPAP to wear overnight at home but has been noncompliant with it. Nocturnal sleep study done.
Results, order and progress note faxed over to [employer] to initiate Nocturnal Oxygen. Plan is for the patient to return home. CM to follow
--- NOTE | 2024-10-06 12:01 | W.PN.CARDCBS ---
Addendum entered and electronically signed by Alexander Smith MD 10/06/24 12:51:
I saw and examined the patient.
The Fisher Trap's note was reviewed and I agree with the note.
Comment: Briefly, 79-year-old woman past medical history paroxysmal atrial relation with prior ablation who presented with URI symptoms and was found to be in atrial fibrillation with rapid ventricular response
Previously on Tikosyn for rhythm control however as this was ineffective plan is to transition to amiodarone
Following Tikosyn washout received first dose of amiodarone earlier today
Continue p.o. metoprolol
Attempt to wean off diltiazem drip later today
Monitor on telemetry overnight check EKG tomorrow a.m.
Eliquis for cardioembolic
Tells me her volume status is improved with IV Lasix
Tentative plan to transition to p.o. Lasix Wednesday as an outpatient
Discussed that ultimately she may need repeat ablation
Rest per Nahomy Mccabe
Original Note:
Today's Communication / Plan
-
amio started
repeat EKG in AM
stop IV cardizem this evening
continue lopressor, eliquis
consider po lasix 20mg MWF as OP
OP EP eval to discuss repeat ablation
Impression / Plan
-
Primary Alarm Field Technician: Dr. Perez
Primary EP: Dr. Workman
Assessment:
Presentation with cough, wheezing
Suspected viral URI, possible RSV as grandchildren positive
PAF, presently with RVR
History of PVI 09/2023
Chronic tikosyn therapy
Chronic OAC with eliquis
KATHLEEN
MVP
HTN
HLD
History of L breast cancer s/p lumpectomy 1997 and radiation
ECHO 04/2023: EF 50%, mild MR, dilated LA, normal right heart with moderate pulmonary hypertension, PAP 51 mmHg systolic
ECHO 10/03/24: EF 55 to 60%, moderate biatrial dilation, mild MR, mild to moderate TR, PAP 40 to 45 mmHg
Plan:
-each day breathing appears better with less wheezing
-remains with paroxysms of afib on review of tele, currently in afib however HRs well controlled. amiodarone 200mg TID started 10/06 after 72 hour tikosyn washout. plan for short term amio with EP eval to discuss options including repeat ablation.
plan for 200mg BID for 1 month then 200mg daily upon DC
-will plan to stop IV cardizem tonight after 2nd dose of po amiodarone
-repeat EKG in AM to reassess QTc on amiodarone
-continue lopressor 75mg BID
-reports compliance with eliquis as OP, continue
-received IV lasix earlier in admission with some improvement however then had bump in BUN/Cr. was not on diuretic therapy as OP. may consider p.o. Lasix 20 mg MWF as outpatient
-Echo with results as above, no significant change compared to prior
-Of note TSH low at 0.06 with compensated free T4. Defer treatment to primary service. Patient reports she does have history of thyroid nodules which were biopsied and felt to be benign. If hyperthyroid, could be contributing to atrial arrhythmia
-she reports a history of sleep apnea however has been unable to tolerate CPAP. she reports feeling much better with HS oxygen. assessment per primary service for nocturnal home O2.
-will arrange OP cardiac follow up
Progress Note - Alarm Field Technician
Subjective
Date of Service: October 06, 2024
reports improvement in breathing
Objective
Labs:
10/06/24 04:57
10/06/24 04:57
Labs
Hgb 13.9 g/dL (12.0-16.0) 10/06/24 04:57
Hct 42.5 % (37.0-47.0) 10/06/24 04:57
Plt Count 269 10^3/uL (130-400) 10/06/24 04:57
Sodium 137 mmol/L (135-145) 10/06/24 04:57
Potassium 4.4 mmol/L (3.5-5.1) 10/06/24 04:57
BUN 45 mg/dl (7-17) H 10/06/24 04:57
Creatinine 0.9 mg/dL (0.6-1.0) 10/06/24 04:57
Glucose 126 mg/dl (70-99) H 10/06/24 04:57
Vital Signs and I&O:
Vital Signs
Temp Pulse Resp BP Pulse Ox
97.4 F 102 18 130/93 93
10/06/24 11:11 10/06/24 08:23 10/06/24 11:11 10/06/24 03:21 10/06/24 11:11
Vital Signs
Temp Pulse Resp BP Pulse Ox
97.4 F 102 18 130/93 93
10/06/24 11:11 10/06/24 08:23 10/06/24 11:11 10/06/24 03:21 10/06/24 11:11
Intake & Output
10/04/24 10/05/24 10/06/24 10/07/24
07:59 07:59 07:59 07:59
Intake Total 480 / 480
Output Total 1500 / 1500 1350 / 1350 1350 / 1350
Balance -1500 / -1500 -870 / -870 -1350 / -1350
Physical Exam
Physical Exam
GEN: No distress, awake, alert, oriented x3
HEENT: supple, anicteric, mmm, EOMI
LUNGS: Few wheezes B/L, overall improving
CV: Irreg, S1/S2, no murmur
ABD: soft, BS+, NT/ND
EXT: No cyanosis, clubbing, edema
NEURO: Gross non-focal
SKIN: Warm, pink, dry. No rash
--- NOTE | 2024-10-06 20:45 | PTCARENOTE ---
received patient from previous RN, patient is pleasant,voices no concerns at this time. patient has harsh cough, unable to bring anything up. when listening to lung ruiz very coarse throughout. monitor shows Afib, VSS. patient has very [poor
vision and enforced if patient need to go to the bathroom to please call for assistance,patient verbalized understanding.
[2024-10-06] MEDS: LIPITOR 10 MG PO (22:03)
[2024-10-06] MEDS: MELATONIN 5 MG PO (23:38)
[2024-10-06] MEDS: FLUSH (NSS) 1 FLUSH IV (23:39)
--- NOTE | 2024-10-07 00:07 | PTCARENOTE ---
Assumed care of the patient at 2300, received neb tx and having a harsh NPC following treatment. Coarse rhonci auscultated throughout, using 2L NC HS. Given tessalon pearles for cough and melatonin as ordered for sleep.
[2024-10-07 03:29] VITALS: BP 134/82
[2024-10-07 03:47] VITALS: BMI 35.4
[2024-10-07 04:16] LABS: Hematocrit 43.2 % (37.0-47.0); Hemoglobin 13.9 g/dL (12.0-16.0); Mean Corp Hgb Conc. 32.2 g/dL (33.0-37.0); Mean Corpuscular Hgb 30.6 pg (27.0-31.0); Mean Corpuscular Volume 95.2 fL (81.0-99.0); Mean Platelet Volume 9.9 fL (7.4-10.4); Platelet Count 268 10^3/uL (130-400); Red Blood Cell Count 4.54 10^6/uL (4.20-5.40); Red Cell Dist. Width 14.2 % (11.5-14.5); White Blood Cell Count 10.1 10^3/uL (4.8-10.8)
[2024-10-07 04:35] LABS: Blood Urea Nitrogen 45 mg/dl (7-17); Calcium 9.8 mg/dl (8.4-10.2); Carbon Dioxide 29 mmol/L (22-30); Chloride 100 mmol/L (98-107); Estimated Creatinine Clearance 42 ml/min; Glucose 106 mg/dl (70-99); Magnesium 2.6 mg/dl (1.6-2.3); Phosphorus 3.7 mg/dl (2.5-4.5); Potassium 4.3 mmol/L (3.5-5.1); Sodium 137 mmol/L (135-145)
[2024-10-07 06:56] VITALS: BP 102/89
--- NOTE | 2024-10-07 07:27 | W.PN.HOSP.TC ---
Today's Communication/Plan
-
cont rate rhythm control as per cardiology
cont prednisone
Pulm eval
Assessment / Plan
Assessment / Plan
Physical Exam
General: No Apparent Distress, appears comfortable at this time
HEENT: Normocephalic and Atraumatic
Respiratory:mild/moderate wheezing
Cardiac: S1/S2 and Irregular Rhythm
GI: Soft, Nontender, Nondistended and Normal Bowel Sounds
Musculoskeletal: No Clubbing, No Cyanosis and No Edema
Skin: Warm and Dry
Neuro: AO x 3 and No Motor Deficits
Psych: Calm
ASSESSMENT & PLAN
79F pAfib HTN HLD Breast Ca Lumpectomy Radiation Obesity KATHLEEN here for Bronchitis and Uncontrolled Afib
#Acute asthmatic viral bronchitis with reactive airway and bronchospasm
#Contact exposures to RSV from family members (though RSV neg possible false neg)
- IV Decadron 4mg q12h tapered to Prednisone 40 mg daily
- RSV neg, Flu neg, COVID neg
- Xopenex tid and prn
-Pulm eval
#Afib with RVR triggered by acute asthmatic viral bronchitis
- previous flecainide therapy stopped due to ineffectiveness 06/2023
- s/p PV isolation ablation 10/08/2023
- continue Diltiazem gtt Metoprolol as per Cardio
- DC (Tikosyn) (on initially since 05/01/2024)
- Chronic AC; on Eliquis-continue
- cardio eval appreciated Tikosyn washout, Amiodarone started 10/06, Lasix 20 mg MWF
- ECHO appreciated EF 55-60% no significant change from prior ECHO 10/06/23
#Abnormal Thyroid Function Test
TSH low but T4 Wnl suspect sick euthyroid syndrome vs possible steroid suppression TSH
recommend repeating TFT in a month with primary care provider
#No prior HX CHF
Possible Mild acute vs chronic HFpEF
-received diuretics, off IV lasix, started PO Lasix 20 mg MWF as per Cardio
#Constipation
-colace, senna
#Essential HTN
- cont cardizem gtt, metoprolol as per cardio
#KATHLEEN on CPAP.
- not tolerating CPAP at home
#Nocturnal Desaturation/Nocturnal Dyspnea ameliorated with nasal cannula supplementation
-Discussed patient's nocturnal oxygenation study result with Pulmonary cotton bag sewer. Per discussion, with accumulated time 2min 28 sec hypoxia <89%, patient qualifies for Bedtime Supplemental Oxygen 2L to maintain saturations overnight and promote good
sleep- overall beneficial to patient's health.
-Discussed with patient to discontinue further CPAP use in favor of bedtime Nasal cannula oxygen supplementation for the time being pending further evaluation treatment outpatient pulmonology. Patient able to verbalize understanding of above
recommendation and her agreement with plan.
-case mgmt consult appreciated Bedtime Oxygen Supplementation set up on discharge
Normal CAD 04/26/2023.
HX breast cancer status post lumpectomy and radiation in 1997.
DVT Px: on K [employer]IP[employer] Eliquis.
Code: Full code
I spent a total of 45 minutes with the patient or on the floor. More than 50% of this time involved counseling and coordination of care.
Anticipated Discharge: Within 24 hours
Subjective/Interval History
-
Date of Service: October 07, 2024
Symptomatic wheezing, afib persist
Objective Data
-
Labs:
Laboratory Results
10/07/24
03:42
WBC 10.1
Hgb 13.9
Hct 43.2
Plt Count 268
Sodium 137
Potassium 4.3
Chloride 100
Carbon Dioxide 29
BUN 45 H
Creatinine 1.1 H
Glucose 106 H
Calcium 9.8
Vital Signs:
Vital Signs
Temp Pulse Resp BP Pulse Ox
97.5 F 100 18 134/82 99
10/07/24 06:54 10/07/24 04:00 10/07/24 06:54 10/07/24 03:29 10/07/24 06:54
I&O
10/06/24 10/07/24 10/08/24
06:59 06:59 06:59
Intake Total 50 / 50
Output Total 1350 / 1350 200 / 200
Balance -1350 / -1350 -150 / -150
--- NOTE | 2024-10-07 08:19 | W.PN.CARDCBS ---
Addendum entered and electronically signed by Jose Carlos Simmons MD 10/07/24 09:44:
I saw and examined the patient.
The Data Examination Clerk's note was reviewed and I agree with the note.
Comment:
GEN: No distress, awake, Ox3
HEENT: supple, anicteric, mmm
LUNGS: bilat rhonchi
CV: Irreg, S1/S2, 10/02 syst LSB, no gallop
ABD: soft, BS+, NT/ND
EXT: No edema
NEURO: Gross non-focal
SKIN: No rash
Plan:
Still with bronchitis and cough. Now on amiodarone. Still having paroxysms of A-fib although more in A-fib today.
From a cardiology standpoint would want to continue amiodarone and then reevaluate for cardioversion as outpatient once she is over her bronchitis and cough.
Would continue Lasix 20 mg Wednesday.
Will arrange cardiology follow-up.
Original Note:
Today's Communication / Plan
-
Send home on Amiodarone 200mg BID for 1 month then 200mg daily
Discharge home on Lasix 20mg MWF
BMP 7 to 10 days
Outpatient cardiology follow-up has been arranged
Impression / Plan
-
Primary Museum Tour Guide: Dr. Perez
Primary EP: Dr. Workman
Assessment:
Presentation 10/02/2024 with cough, wheezing
Suspected viral URI, possible RSV as grandchildren positive
PAF, presently with RVR
History of PVI 09/2023
Chronic tikosyn therapy
Chronic OAC with eliquis
KATHLEEN
MVP
HTN
HLD
History of L breast cancer s/p lumpectomy 1997 and radiation
ECHO 04/2023: EF 50%, mild MR, dilated LA, normal right heart with moderate pulmonary hypertension, PAP 51 mmHg systolic
ECHO 10/03/24: EF 55 to 60%, moderate biatrial dilation, mild MR, mild to moderate TR, PAP 40 to 45 mmHg
Plan:
-Presentation 10/02/2024 with cough, wheezing/URI symptoms.
-Symptomatically she continues to improve however continues to have wheezing and still does not feel great from a breathing standpoint.
-From a volume standpoint she looks good. Her lower extremity edema has resolved. Received IV lasix earlier in admission with some improvement however then had bump in BUN/Cr. Was not on diuretic therapy as OP. Creat 1.1. Discharge home on Lasix
20 mg MWF.
-Check BMP in 7-10 days as outpt. Order placed on chart
-Echo with results as above, no significant change compared to prior
-remains with paroxysms of afib on review of tele, currently in afib however HRs reasonably controlled. Amiodarone 200mg TID started 10/06 after 72 hour tikosyn washout. plan for short term amio with EP eval to discuss options including repeat
ablation. plan for 200mg BID for 1 month then 200mg daily upon DC
-EKG a.m. of 10/07/2024 atrial fibrillation with controlled ventricular response. QTc stable at 460 ms
-continue lopressor 75mg BID
-reports compliance with Eliquis as OP, continue
-Of note TSH low at 0.06 with compensated free T4. Defer treatment to primary service. Patient reports she does have history of thyroid nodules which were biopsied and felt to be benign. If hyperthyroid, could be contributing to atrial arrhythmia
-she reports a history of sleep apnea however has been unable to tolerate CPAP. Patient had nocturnal polysomnogram and was found to have 2-1/2 minutes of hypoxia. Hospitalist discussed with pulmonary and plan is to send home on nocturnal oxygen.
-OP cardiac follow up has been arranged
Progress Note - Museum Tour Guide
Subjective
Date of Service: October 07, 2024
Patient seen and examined. Patient overall feels like she is slowly improving. She feels her lower extremity edema has improved significantly but she continues to feel short of breath with cough and ongoing wheezing.
Objective
Labs:
10/07/24 03:42
10/07/24 03:42
Labs
Hgb 13.9 g/dL (12.0-16.0) 10/07/24 03:42
Hct 43.2 % (37.0-47.0) 10/07/24 03:42
Plt Count 268 10^3/uL (130-400) 10/07/24 03:42
Sodium 137 mmol/L (135-145) 10/07/24 03:42
Potassium 4.3 mmol/L (3.5-5.1) 10/07/24 03:42
BUN 45 mg/dl (7-17) H 10/07/24 03:42
Creatinine 1.1 mg/dL (0.6-1.0) H 10/07/24 03:42
Glucose 106 mg/dl (70-99) H 10/07/24 03:42
Vital Signs and I&O:
Vital Signs
Temp Pulse Resp BP Pulse Ox
97.5 F 100 18 134/82 99
10/07/24 06:54 10/07/24 04:00 10/07/24 06:54 10/07/24 03:29 10/07/24 06:54
Vital Signs
Temp Pulse Resp BP Pulse Ox
97.5 F 100 18 134/82 99
10/07/24 06:54 10/07/24 04:00 10/07/24 06:54 10/07/24 03:29 10/07/24 06:54
Intake & Output
10/05/24 10/06/24 10/07/24 10/08/24
06:59 06:59 06:59 06:59
Intake Total 480 / 480 50 / 50
Output Total 1750 / 1750 1350 / 1350 200 / 200
Balance -1270 / -1270 -1350 / -1350 -150 / -150
Physical Exam
Physical Exam
GEN: No distress, awake, Ox3, coughing
HEENT: supple, anicteric, mmm
LUNGS: Diffuse bilateral wheezing, no rales; coughing as patient just completed nebulizer
CV: Irregularly irregular, S1/S2, 1/6 syst LSB, no murmur
ABD: soft, BS+, NT/ND
EXT: No edema, clubbing or cyanosis
NEURO: Gross non-focal
SKIN: No rash, warm, dry, pink
[2024-10-07] MEDS: ATROVENT NEBULES 0.5 MG INH ×3 (08:23→17:59)
[2024-10-07] MEDS: XOPENEX 0.63 MG INHALANT SOLUTION INH ×3 (08:23→17:59)
[2024-10-07] MEDS: DELTASONE 40 MG PO (08:38)
[2024-10-07] MEDS: COLACE 100 MG PO ×2 (08:38→19:53)
[2024-10-07] MEDS: LOPRESSOR 75 MG PO ×2 (08:38→19:54)
[2024-10-07] MEDS: ELIQUIS 5 MG PO ×2 (08:40→19:53)
[2024-10-07] MEDS: PACERONE 200 MG PO ×3 (08:40→22:24)
--- NOTE | 2024-10-07 11:03 | CON.PUL ---
Consultation
Consultation Request
Date/Time Consultation Requested: 10/07/24
Date/Time Consultation Performed: 10/07/24
Performing Provider: José Miguel
Reason for Consultation: Cough
Medical History
-
History of Present Illness:
Patient is an 79-year-old female with previous history of atrial fibrillation, hypertension, hyperlipidemia, KATHLEEN presenting with persistent subacute cough, shortness of breath and palpitations. She feels this was triggered by an upper respiratory
infection in the past week. She was diagnosed with bronchitis in the ER 3 days prior to admission and given an inhaler and steroids. She notes increasing palpitations with elevated heart rate due to atrial fibrillation. She is admitted on
10/02/2024. Initial chest x-ray demonstrating no acute process, she was started on prednisone and nebulizers without benefit. She is currently 95% on room air.
Denies prior known history of lung disease in past. Trivial smoker in HS, not significant.
No prior PFTS for review.
She has KATHLEEN but does not want to use her CPAP while inpatient due to mask discomfort and 'chapped lips.' She appears anxious and her family is present at bedside.
Past Medical History
Past Medical History: Other (See list below)
Social History
Tobacco: Non-smoker
Alcohol: None
Drug: None
Family History
Family History: Reviewed & Not Pertinent
Allergies / Home Medications
Allergies
Allergy/AdvReac Type Severity Reaction Status Date / Time
No Known Allergies Allergy Verified 10/02/24 15:13
Home Medications
�Medication �Instructions �Recorded �Confirmed �Last Taken �Type
apixaban 5 mg tablet (Eliquis) 5 mg PO BID Blood Clot 04/26/23 10/02/24 05/01/24 07:00 History
Prevention/Tx
atorvastatin 10 mg tablet 10 mg PO HS High Cholesterol 04/26/23 10/02/24 04/30/24 18:00 History
vit C 250 mg-vit E 90 mg-zinc 40 1 tab PO BID Supplement 04/26/23 10/02/24 05/01/24 07:00 History
mg-copper 1 [id number]
capsule (PreserVision AREDS-2)
metoprolol tartrate 75 mg tablet 75 mg PO BID Blood Pressure 09/24/23 10/02/24 05/01/24 07:00 History
cholecalciferol (vitamin D3) 50 50 mcg PO DAILY Supplement 05/01/24 10/02/24 05/01/24 07:00 History
mcg (2,000 unit) capsule (Vitamin
D3)
dofetilide 500 mcg capsule 500 mcg PO Q12H #60 caps 05/02/24 10/02/24 Unknown Rx
(Tikosyn)
levalbuterol tartrate 45 2 inh inhalation R QID wheezing 10/02/24 10/02/24 Unknown History
mcg/actuation aerosol inhaler
(Xopenex HFA)
prednisone 50 mg tablet 50 mg PO DAILY Anti-Inflammatory 10/03/24 10/02/24 Unknown History
Review of Systems
-
History Source: Patient
All other systems: Negative unless noted
Vitals / Labs / Diagnostic Testing
Vital Signs
Temp Pulse Resp BP Pulse Ox
97.5 F 150 22 102/89 95
10/07/24 06:54 10/07/24 10:00 10/07/24 08:26 10/07/24 06:56 10/07/24 10:55
Lab Data
10/07/24 03:42
10/07/24 03:42
Diagnostic Testing:
Physical Exam
-
HEENT: Normocephalic, Anicteric and Moist Mucous Membranes
Cardiovascular: S1/S2 and Regular Rhythm
Respiratory: Wheeze and Non-Labored Respirations
GI: Soft, Non Distended and Non Tender
Neurology: Awake, Alert, Oriented and No Motor Deficits
Skin: Warm, Dry and Good Color
General: Comfortable and Other (NAD)
Assessment
-
Patient is an 79-year-old female with previous history of atrial fibrillation, hypertension, hyperlipidemia, KATHLEEN presenting with persistent subacute cough, shortness of breath and palpitations. She feels this was triggered by an upper respiratory
infection in the past week. She was diagnosed with bronchitis in the ER 3 days prior to admission and given an inhaler and steroids. She notes increasing palpitations with elevated heart rate due to atrial fibrillation. She is admitted on
10/02/2024. Initial chest x-ray demonstrating no acute process, she was started on prednisone and nebulizers without benefit. She is currently 95% on room air.
Subacute cough/wheezing
Possible cough variant asthma versus reactive airways disease vs cardiac wheezing
Recently diagnosed with asthmatic bronchitis and treated with inhaler and prednisone course
A-fib with RVR
Conditions present prior to admission
PAF s/p cardioversion, ablation 10/06/2023
Obesity (BMI 30-39.9)
Hypercholesteremia
KATHLEEN on CPAP
Hypertension
Macular degeneration
MVP
Hx breast cancer s/p lumpectomy left breast 1997
s/p cardiac cath 04/2023
Acetabular fracture 2010
Tikosyn Loading 07/2023 + 04/2024
Plan
No oxygen was needed on admission, currently saturating >90% on RA, nontoxic appearing
She as intermittent cough, SOB and wheezing at rest and with exertion, she is not sure what triggers symptoms
She denies prior history of lung disease--never had asthma diagnosis in the past
No prior PFTs for review
She has been receiving PO prednisone and inhalers with no difference in her complaints
CXR/CT obtained indicating NAD, past CT chest negative
Suspect patient has cardiac wheeze given lack of improvement on asthma treatment
Can continue oral prednisone for now, will add high dose Flovent as well but I reviewed with family that this is less likely if she is not responding to treatment
Obtain bedside PFT
Cards eval obtained for Afib which has been problematic with control
Maintained on amio and tikosyn
proBNP >2000, will repeat again
Prior ECHO results are reviewed indicating preserved function
KATHLEEN--does not want to use CPAP
We discussed her nocturnal desaturation likely from untreated apnea
We discussed importance of treatment in setting of Afib
Weight loss measures recommended
Obesity likely contributing to respiratory symptoms
Will need outpatient pulmonary evaluation in our office for PFTs and 6MWT
Reviewed with patient
I discussed plan of care in detail with family present
If there is no further intervention from cardiac standpoint, can discharge
If there is no further w/u and can eval wheezing further as OP--she is otherwise stable
PFT can be done as OP
We will follow
Diagnostic Data
Chest X-Ray: 10/02/24- No active cardiopulmonary disease.
CT Scan: CHEST 10/04/23- There is no significant pleural or pericardial effusion. No pulmonary nodules or areas of airspace disease.
Echo: 10/03/24- 1. Left ventricle: Normal size and function with a estimated ejection fraction of 55-60% by visual estimation. No regional wall motion abnormalities
2. Right ventricle: Normal
3. Atria: Moderate biatrial dilation
4. Mitral valve: Mild mitral regurgitation. The mitral leaflets are thickened and sclerotic
5. Aortic valve: Trileaflet. No aortic stenosis or aortic insufficiency
6. Tricuspid valve: Mild to moderate tricuspid regurgitation with estimated pulmonary artery systolic pressures of 40-45 mmHg
7. When compared to the most recent echocardiogram from 10/06/2023 (transesophageal echocardiogram) there has been no significant change
PFT's:
Reports and relevant images were personally reviewed.
Total time spent on this consultation __75__ minutes which includes review of history, physical exam, medications, laboratory data, personal review of imaging, extensive review of outpatient records, discussion with care team and respiratory therapy.
[2024-10-07 12:59] VITALS: BP 133/78
[2024-10-07 14:55] LABS: NT-proBNP 1220 pg/ml
[2024-10-07 16:01] VITALS: BP 128/74
[2024-10-07] MEDS: FLOVENT 220 MCG INHALER 2 PUFF INH (18:00)
[2024-10-07 19:53] VITALS: BP 136/92
[2024-10-07 22:23] VITALS: BP 117/75
[2024-10-07] MEDS: LIPITOR 10 MG PO (22:23)
[2024-10-07] MEDS: MELATONIN 5 MG PO (22:23)
[2024-10-07] MEDS: TESSALON PERLES 200 MG PO (22:24)
--- NOTE | 2024-10-07 22:53 | PTCARENOTE ---
Received patient at change of shift. A fib on the monitor, HR in the 110s. Patient complains of harsh cough, PRN Tessalon Perles administered as per NOV. 2L nasal cannula used instead of CPAP machine as per pt request. Call arevalo within reach.
[2024-10-08] VITALS (8 sets, daily range): BP systolic 97–136; BP diastolic 67–102; BMI 35.4
[2024-10-08 04:55] LABS: Hematocrit 41.9 % (37.0-47.0); Hemoglobin 13.4 g/dL (12.0-16.0); Mean Corpuscular Hgb 30.6 pg (27.0-31.0); Mean Corpuscular Volume 95.7 fL (81.0-99.0); Mean Platelet Volume 10.1 fL (7.4-10.4); Platelet Count 249 10^3/uL (130-400); Red Blood Cell Count 4.38 10^6/uL (4.20-5.40); Red Cell Dist. Width 14.2 % (11.5-14.5); White Blood Cell Count 9.1 10^3/uL (4.8-10.8)
[2024-10-08 05:13] LABS: Blood Urea Nitrogen 40 mg/dl (7-17); Calcium 9.3 mg/dl (8.4-10.2); Carbon Dioxide 27 mmol/L (22-30); Chloride 103 mmol/L (98-107); Estimated Creatinine Clearance 46 ml/min; Glucose 104 mg/dl (70-99); Magnesium 2.7 mg/dl (1.6-2.3); Phosphorus 3.4 mg/dl (2.5-4.5); Potassium 4.6 mmol/L (3.5-5.1); Sodium 137 mmol/L (135-145); eGFR 56.95
[2024-10-08] MEDS: ATROVENT NEBULES 0.5 MG INH ×3 (06:29→17:57)
[2024-10-08] MEDS: XOPENEX 0.63 MG INHALANT SOLUTION INH ×3 (06:29→17:57)
[2024-10-08] MEDS: FLOVENT 220 MCG INHALER 2 PUFF INH ×2 (06:30→17:58)
--- NOTE | 2024-10-08 06:55 | W.PN.HOSP.TC ---
Today's Communication/Plan
-
Stable for downgrade to [facility]
cont rate rhythm control as per cardiology
cont prednisone taper, reducing by 10mg after every 4th dose
Cont Flovent as per Pulm
Assessment / Plan
Assessment / Plan
Physical Exam
General: No Apparent Distress, appears comfortable at this time
HEENT: Normocephalic and Atraumatic
Respiratory:mild/moderate wheezing
Cardiac: S1/S2 and Irregular Rhythm
GI: Soft, Nontender, Nondistended and Normal Bowel Sounds
Musculoskeletal: No Clubbing, No Cyanosis and No Edema
Skin: Warm and Dry
Neuro: AO x 3 and No Motor Deficits
Psych: Calm
ASSESSMENT & PLAN
79F pAfib HTN HLD Breast Ca Lumpectomy Radiation Obesity KATHLEEN here for Bronchitis and Uncontrolled Afib
#Acute asthmatic viral bronchitis with reactive airway and bronchospasm
#Contact exposures to RSV from family members (though RSV neg possible false neg)
- IV Decadron 4mg q12h tapered to Prednisone 40 mg daily, cont taper by 10 mg after every 4th dose.
- RSV neg, Flu neg, COVID neg
- Xopenex tid and prn
-Pulm eval appreciated PFT noted moderate obstruction COPD vs asthma, short term follow up with repeat PFTs planned
#Afib with RVR triggered by acute asthmatic viral bronchitis
- previous flecainide therapy stopped due to ineffectiveness 06/2023
- s/p PV isolation ablation 10/08/2023
- continue Diltiazem gtt Metoprolol as per Cardio
- DC (Tikosyn) (on initially since 05/01/2024)
- Chronic AC; on Eliquis-continue
- cardio eval appreciated Tikosyn washout, Amiodarone started 10/06, Lasix 20 mg MWF, Amiodarone to reduced to 200 mg BID prior to discharge, Oct 17 appt with EP to discuss possible repeat ablation
- ECHO appreciated EF 55-60% no significant change from prior ECHO 10/06/23
#Abnormal Thyroid Function Test
TSH low but T4 Wnl suspect sick euthyroid syndrome vs possible steroid suppression TSH
recommend repeating TFT in a month with primary care provider
#No prior HX CHF
Possible Mild acute vs chronic HFpEF
-received diuretics, off IV lasix, started PO Lasix 20 mg MWF as per Cardio
#Constipation
-Colace, senna
#Essential HTN
- cont cardizem gtt, metoprolol as per cardio
#KATHLEEN on CPAP.
- not tolerating CPAP at home
#Nocturnal Desaturation/Nocturnal Dyspnea ameliorated with nasal cannula supplementation
-Discussed patient's nocturnal oxygenation study result with Pulmonary credit collections analyst. Per discussion, with accumulated time 2min 28 sec hypoxia <89%, patient qualifies for Bedtime Supplemental Oxygen 2L to maintain saturations overnight and promote good
sleep- overall beneficial to patient's health.
-Discussed with patient to discontinue further CPAP use in favor of bedtime Nasal cannula oxygen supplementation for the time being pending further evaluation treatment outpatient pulmonology. Patient able to verbalize understanding of above
recommendation and her agreement with plan.
-case mgmt consult appreciated Bedtime Oxygen Supplementation set up on discharge
Normal CAD 04/26/2023.
HX breast cancer status post lumpectomy and radiation in 1997.
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
Code: Full code
Stable for downgrade to [facility]
I spent a total of 45 minutes with the patient or on the floor. More than 50% of this time involved counseling and coordination of care.
Anticipated Discharge: Within 24 hours
Subjective/Interval History
-
Date of Service: October 08, 2024
Seen and examined at bedside in no acute distress sitting up comfortably in bed. Reports improvement in wheezing but remains significantly symptomatic.
Objective Data
-
Labs:
Laboratory Results
10/08/24
04:06
WBC 9.1
Hgb 13.4
Hct 41.9
Plt Count 249
Sodium 137
Potassium 4.6
Chloride 103
Carbon Dioxide 27
BUN 40 H
Creatinine 1.0
Glucose 104 H
Calcium 9.3
Vital Signs:
Vital Signs
Temp Pulse Resp BP Pulse Ox
97.8 F 80 18 136/90 96
10/08/24 04:00 10/08/24 06:32 10/08/24 06:32 10/08/24 03:58 10/08/24 06:32
I&O
10/06/24 10/07/24 10/08/24
06:59 06:59 06:59
Intake Total 50 / 50
Output Total 1350 / 1350 200 / 200
Balance -1350 / -1350 -150 / -150
[2024-10-08] MEDS: PACERONE 200 MG PO ×3 (07:36→22:17)
[2024-10-08] MEDS: ELIQUIS 5 MG PO ×2 (07:36→20:01)
[2024-10-08] MEDS: COLACE 100 MG PO ×2 (07:36→20:02)
[2024-10-08] MEDS: LOPRESSOR 75 MG PO ×2 (07:36→20:01)
[2024-10-08] MEDS: DELTASONE 40 MG PO (07:36)
--- NOTE | 2024-10-08 09:28 | W.PN.CARDCBS ---
Today's Communication / Plan
-
Stable cardiology status for discharge
Will change amiodarone to 200 mg p.o. twice daily prior to discharge
Impression / Plan
-
Primary Service Architect: Dr. Perez
Primary EP: Dr. Workman
Assessment:
Presentation 10/02/2024 with cough, wheezing
Suspected viral URI, possible RSV as grandchildren positive
PAF, presently with RVR
History of PVI 09/2023
Chronic tikosyn therapy
Chronic OAC with eliquis
KATHLEEN
MVP
HTN
HLD
History of L breast cancer s/p lumpectomy 1997 and radiation
ECHO 04/2023: EF 50%, mild MR, dilated LA, normal right heart with moderate pulmonary hypertension, PAP 51 mmHg systolic
ECHO 10/03/24: EF 55 to 60%, moderate biatrial dilation, mild MR, mild to moderate TR, PAP 40 to 45 mmHg
Plan:
She remains short of breath and wheezing
Is stable from a cardiology viewpoint and will consider outpatient cardioversion if remains in afib
Will change amiodarone to 200 mg p.o. twice daily prior to discharge
She has an appointment in our office on October 17, 2024 with EP elliott to discuss options including repeat ablation.
Progress Note - Service Architect
Subjective
Date of Service: October 08, 2024
No complaints
Objective
Labs:
10/08/24 04:06
10/08/24 04:06
Labs
Hgb 13.4 g/dL (12.0-16.0) 10/08/24 04:06
Hct 41.9 % (37.0-47.0) 10/08/24 04:06
Plt Count 249 10^3/uL (130-400) 10/08/24 04:06
Sodium 137 mmol/L (135-145) 10/08/24 04:06
Potassium 4.6 mmol/L (3.5-5.1) 10/08/24 04:06
BUN 40 mg/dl (7-17) H 10/08/24 04:06
Creatinine 1.0 mg/dL (0.6-1.0) 10/08/24 04:06
Glucose 104 mg/dl (70-99) H 10/08/24 04:06
Vital Signs and I&O:
Vital Signs
Temp Pulse Resp BP Pulse Ox
97.7 F 80 20 136/90 95
10/08/24 06:51 10/08/24 06:32 10/08/24 06:51 10/08/24 03:58 10/08/24 06:51
Vital Signs
Temp Pulse Resp BP Pulse Ox
97.7 F 80 20 136/90 95
10/08/24 06:51 10/08/24 06:32 10/08/24 06:51 10/08/24 03:58 10/08/24 06:51
Intake & Output
10/06/24 10/07/24 10/08/24 10/09/24
06:59 06:59 06:59 06:59
Intake Total 50 / 50
Output Total 1350 / 1350 200 / 200
Balance -1350 / -1350 -150 / -150
Physical Exam
Physical Exam
General: Well developed, well nourished in NAD.
Neck: Supple, no JVD, HJR, carotids +2 B/L, no bruits bilaterally.
Heart: Non displaced PMI, irregular, no murmurs, No S3, S4, no rubs.
Lungs: Scattered wheezing throughout
Extremities: No clubbing, cyanosis or edema bilaterally.
Neuro: Grossly nonfocal, awake, alert and oriented x3.
--- NOTE | 2024-10-08 10:01 | W.PN.PUL3 ---
Today's Communication / Plan
-
Doing better this AM, less wheezing but still present
PFT showing moderate obstruction, COPD vs asthma (discussed w/ patient)
Continue prednisone taper and inhalers at discharge, we will arrange short term FU with repeat PFTs
Discharge planning otherwise per team pending cards management as well
Assessment
-
Patient is an 79-year-old female with previous history of atrial fibrillation, hypertension, hyperlipidemia, KATHLEEN presenting with persistent subacute cough, shortness of breath and palpitations. She feels this was triggered by an upper respiratory
infection in the past week. She was diagnosed with bronchitis in the ER 3 days prior to admission and given an inhaler and steroids. She notes increasing palpitations with elevated heart rate due to atrial fibrillation. She is admitted on
10/02/2024. Initial chest x-ray demonstrating no acute process, she was started on prednisone and nebulizers without benefit. She is currently 95% on room air.
Subacute cough/wheezing
Possible cough variant asthma versus reactive airways disease vs cardiac wheezing
Recently diagnosed with asthmatic bronchitis and treated with inhaler and prednisone course
A-fib with RVR
Conditions present prior to admission
PAF s/p cardioversion, ablation 10/06/2023
Obesity (BMI 30-39.9)
Hypercholesteremia
KATHLEEN on CPAP
Hypertension
Macular degeneration
MVP
Hx breast cancer s/p lumpectomy left breast 1997
s/p cardiac cath 04/2023
Acetabular fracture 2010
Tikosyn Loading 07/2023 + 04/2024
Former smoker 15 PYs
Plan
No oxygen was needed on admission, currently saturating >90% on RA, nontoxic appearing
She as intermittent cough, SOB and wheezing at rest and with exertion, she is not sure what triggers symptoms
She denies prior history of lung disease--never had asthma diagnosis in the past
No prior PFTs for review
She has been receiving PO prednisone and inhalers with no difference in her complaints
CXR/CT obtained indicating NAD, past CT chest negative
Can continue oral prednisone for now, taper at discharge
Wheeze seems getting better, continue high dose Flovent BID--to continue at discharge
Obtain bedside PFT--moderate obstruction, no BD response
Has 15 pack year history, could be ACOS
Repeat PFTs as OP
Cards eval obtained for Afib which has been problematic with control
Maintained on amio and tikosyn
proBNP >2000, will repeat again
Prior ECHO results are reviewed indicating preserved function
KATHLEEN--does not want to use CPAP
We discussed her nocturnal desaturation likely from untreated apnea
We discussed importance of treatment in setting of Afib
Again she insists, she would rather use O2 at night at home
Weight loss measures recommended
Obesity likely contributing to respiratory symptoms
Will need outpatient pulmonary evaluation in our office for PFTs and 6MWT
Reviewed with patient
I discussed plan of care in detail with family present
If there is no further intervention from cardiac standpoint, can discharge
If there is no further w/u and can eval wheezing further as OP--she is otherwise stable
PFT can be done as OP
Diagnostic Data
Chest X-Ray: 10/02/24- No active cardiopulmonary disease.
CT Scan: CHEST 10/04/23- There is no significant pleural or pericardial effusion. No pulmonary nodules or areas of airspace disease.
Echo: 10/03/24- 1. Left ventricle: Normal size and function with a estimated ejection fraction of 55-60% by visual estimation. No regional wall motion abnormalities
2. Right ventricle: Normal
3. Atria: Moderate biatrial dilation
4. Mitral valve: Mild mitral regurgitation. The mitral leaflets are thickened and sclerotic
5. Aortic valve: Trileaflet. No aortic stenosis or aortic insufficiency
6. Tricuspid valve: Mild to moderate tricuspid regurgitation with estimated pulmonary artery systolic pressures of 40-45 mmHg
7. When compared to the most recent echocardiogram from 10/06/2023 (transesophageal echocardiogram) there has been no significant change
Spirometry 10/07/2024: FEV1 1.08 L 60%, FVC 1.87 L 79%, ratio 58. Post FEV1 1.12 L 62%, no BD response --moderate obstruction
Reports and relevant images were personally reviewed.
Total time spent on this consultation __51__ minutes which includes review of history, physical exam, medications, laboratory data, personal review of imaging, extensive review of outpatient records, discussion with care team and respiratory therapy.
Subjective Data
-
Date of Service:
Date of Service: October 08, 2024
Chief Complaint: Pulmonary Follow Up
Subjective:
Doing better today, sitting in chair
Stable on RA
Objective Data
Data Reviewed
Vital Signs / I&O / Oxygen:
Vital Signs
Temp Pulse Resp BP Pulse Ox
97.7 F 80 20 136/90 95
10/08/24 06:51 10/08/24 06:32 10/08/24 06:51 10/08/24 03:58 10/08/24 06:51
Intake and Output
10/07/24 10/08/24 10/09/24
06:59 06:59 06:59
Intake Total 50 / 50
Output Total 200 / 200
Balance -150 / -150
SaO2 95
Nasal Cannula flow liters per 2
minute
Physical Exam
General: Comfortable and Other (NAD)
HEENT: Normocephalic, Anicteric and Moist Mucous Membranes
Cardiovascular: S1-S2 and Regular Rhythm
Respiratory: Wheeze and Non-Labored Respirations
GI: Soft, Non Distended and Non Tender
Neurology: Awake, Alert, Oriented and No Motor Deficits
Skin: Warm, Dry and Good Color
Labs/Micro/Reports
Lab Data
10/08/24 04:06
10/08/24 04:06
[2024-10-08] MEDS: MELATONIN 5 MG PO (22:17)
[2024-10-08] MEDS: LIPITOR 10 MG PO (22:17)
[2024-10-08] MEDS: TESSALON PERLES 200 MG PO (22:19)
--- NOTE | 2024-10-08 23:55 | PTCARENOTE ---
Received patient at change of shift. A fib on the monitor, HR in the 100s. 2L overnight instead of CPAP as per pt request. Pt complains of harsh cough, PRN Tessalon Perles administered as per NOV. Call arevalo within reach.
[2024-10-09 03:53] VITALS: BP 122/75
[2024-10-09 04:14] VITALS: BMI 35.4
[2024-10-09 04:18] LABS: Hematocrit 42.6 % (37.0-47.0); Hemoglobin 13.6 g/dL (12.0-16.0); Mean Corp Hgb Conc. 31.9 g/dL (33.0-37.0); Mean Corpuscular Hgb 30.8 pg (27.0-31.0); Mean Corpuscular Volume 96.6 fL (81.0-99.0); Mean Platelet Volume 9.9 fL (7.4-10.4); Platelet Count 247 10^3/uL (130-400); Red Blood Cell Count 4.41 10^6/uL (4.20-5.40); White Blood Cell Count 10.4 10^3/uL (4.8-10.8)
[2024-10-09 04:44] LABS: Blood Urea Nitrogen 35 mg/dl (7-17); Calcium 9.5 mg/dl (8.4-10.2); Carbon Dioxide 31 mmol/L (22-30); Chloride 102 mmol/L (98-107); Estimated Creatinine Clearance 46 ml/min; Glucose 101 mg/dl (70-99); Magnesium 2.8 mg/dl (1.6-2.3); Phosphorus 3.4 mg/dl (2.5-4.5); Potassium 4.6 mmol/L (3.5-5.1); Sodium 136 mmol/L (135-145); eGFR 56.95
[2024-10-09 08:13] VITALS: BP 113/73
[2024-10-09] MEDS: COLACE 100 MG PO (08:14)
[2024-10-09] MEDS: LOPRESSOR 75 MG PO (08:14)
[2024-10-09] MEDS: PACERONE 200 MG PO (08:15)
[2024-10-09] MEDS: LASIX 20 MG PO (08:15)
[2024-10-09] MEDS: DELTASONE 30 MG PO (08:15)
[2024-10-09] MEDS: ELIQUIS 5 MG PO (08:15)
--- NOTE | 2024-10-09 08:19 | W.PN.PUL3 ---
Today's Communication / Plan
-
Wheezing resolved
Continue prednisone with taper upon discharge
Amiodarone as per cardiology
Tesionaon Fernie
Continue Flovent upon discharge as well as Xopenex QID
Check full PFTs in outpatient as she will likely need a maintenance inhaler
Patient being prepared for discharge home today; no additional recommendations at this time. Pulmonary service will now sign off. Please reconsult if there are any additional questions/concerns, or if patient's respiratory status deteriorates.
Assessment
-
Patient is an 79-year-old female with previous history of atrial fibrillation, hypertension, hyperlipidemia, KATHLEEN presenting with persistent subacute cough, shortness of breath and palpitations. She feels this was triggered by an upper respiratory
infection in the past week. She was diagnosed with bronchitis in the ER 3 days prior to admission and given an inhaler and steroids. She notes increasing palpitations with elevated heart rate due to atrial fibrillation. She is admitted on
10/02/2024. Initial chest x-ray demonstrating no acute process, she was started on prednisone and nebulizers without benefit. She is currently 95% on room air.
Subacute cough/wheezing
Possible cough variant asthma versus reactive airways disease vs cardiac wheezing
Recently diagnosed with asthmatic bronchitis and treated with inhaler and prednisone course
A-fib now on amiodarone
Moderate COPD via spirometry from 10/07/2024 with 24% improvement in the small lung ruiz
Conditions present prior to admission
PAF s/p cardioversion, ablation 10/06/2023
Obesity (BMI 30-39.9)
Hypercholesteremia
KATHLEEN on CPAP
Hypertension
Macular degeneration
MVP
Hx breast cancer s/p lumpectomy left breast 1997
s/p cardiac cath 04/2023
Acetabular fracture 2010
Tikosyn Loading 07/2023 + 04/2024
Former smoker 15 PYs
Plan
No oxygen was needed on admission, currently saturating >90% on RA, nontoxic appearing
She as intermittent cough, SOB and wheezing at rest and with exertion, she is not sure what triggers symptoms
She denies prior history of lung disease--never had asthma diagnosis in the past
No prior PFTs for review
She has been receiving PO prednisone and inhalers with no difference in her complaints
CXR/CT obtained indicating NAD, past CT chest negative
Can continue oral prednisone and continue taper at discharge
Wheeze now resolved, continue Flovent BID--to continue at discharge
Obtained bedside spirometry--moderate COPD, no BD response
Has 15 pack year history, could be ACOS
Check full PFTs as OP with lung volumes and DLco
Cards eval obtained for Afib which has been problematic with control
Maintained on amio; tikosyn only given on 10/02 + 10/03/2024
proBNP >2000, repeat on 10/07/2024 was improved at 1220
ECHO results are reviewed indicating preserved function (LVEF: 55-60% via TTE from 10/03/2024)
KATHLEEN--does not want to use CPAP
We discussed her nocturnal desaturation likely from untreated apnea
We discussed importance of treatment in setting of Afib
Again she insists, she would rather use O2 at night at home
Weight loss measures recommended
Obesity likely contributing to respiratory symptoms
Will need outpatient pulmonary evaluation in our office for PFTs and 6MWT
Reviewed with patient
Dr. Valdez discussed plan of care in detail with family present
Patient being prepared for discharge today. Outpatient pulmonary follow-up will be arranged. No additional recommendations at this time. Pulmonary service will now sign off. Thank you for allowing us to be involved in the care of this patient.
Please reconsult if there are any additional questions/concerns, or if patient's respiratory status deteriorates.
Diagnostic Data
Chest X-Ray: 10/02/24- No active cardiopulmonary disease.
CT Scan: CHEST 10/04/23- There is no significant pleural or pericardial effusion. No pulmonary nodules or areas of airspace disease.
Echo: 10/03/24- 1. Left ventricle: Normal size and function with a estimated ejection fraction of 55-60% by visual estimation. No regional wall motion abnormalities
2. Right ventricle: Normal
3. Atria: Moderate biatrial dilation
4. Mitral valve: Mild mitral regurgitation. The mitral leaflets are thickened and sclerotic
5. Aortic valve: Trileaflet. No aortic stenosis or aortic insufficiency
6. Tricuspid valve: Mild to moderate tricuspid regurgitation with estimated pulmonary artery systolic pressures of 40-45 mmHg
7. When compared to the most recent echocardiogram from 10/06/2023 (transesophageal echocardiogram) there has been no significant change
Spirometry 10/07/2024: FEV1 1.08 L 60%, FVC 1.87 L 79%, ratio 58. Post FEV1 1.12 L 62%, no BD response --moderate obstruction
Reports and relevant images were personally reviewed.
Total time spent today was 26 minutes for this encounter. Time includes reviewing laboratory test/imaging results, reviewing pertinent medical records, obtaining and reviewing medical history, performing an appropriate exam, ordering medications,
tests and procedures. Time also includes documentation of this encounter, coordinating patient care and communicating with other healthcare professionals. Total time does not include separately billed tests performed on this date of service.
Subjective Data
-
Date of Service:
Date of Service: October 09, 2024
Chief Complaint: Pulmonary Follow Up
Subjective:
Patient seen and evaluated today at bedside. Shortness of breath improved, denying chest pain, nausea, vomiting. Eager to go home.
Review of Systems
General: Other (Negative unless mentioned above)
Objective Data
Data Reviewed
Vital Signs / I&O / Oxygen:
Vital Signs
Temp Pulse Resp BP Pulse Ox
97.5 F 88 18 122/75 98
10/09/24 03:53 10/09/24 04:00 10/09/24 03:53 10/09/24 03:53 10/09/24 03:53
Intake and Output
10/08/24 10/09/24 10/10/24
06:59 06:59 06:59
Intake Total 400 / 400
Balance 400 / 400
SaO2 98
Nasal Cannula flow liters per 2
minute
Physical Exam
General: Comfortable and Other (NAD)
HEENT: Normocephalic, Anicteric and Moist Mucous Membranes
Cardiovascular: Irregular Rhythm and Peripheral Edema (n)
Respiratory: Wheeze (n), Crackles (n), Rhonchi (Bilateral) and Non-Labored Respirations
GI: Soft, Non Distended and Non Tender
Neurology: Awake, Alert, Oriented and Tremors (n)
Skin: Warm, Dry and Good Color
Labs/Micro/Reports
Lab Data
10/09/24 04:03
10/09/24 04:03
--- NOTE | 2024-10-09 08:26 | PTCARENOTE ---
Assumed care. Patient comfortable. Course breath sounds, coughing, loose, denies shortness of breath. Trace leg edema. A-fib with occasional PVC's. Complaints of constipation. Had a small bowel movement on Wednesday and large bowel movement on
Wednesday, Colace given
[2024-10-09] MEDS: FLOVENT 220 MCG INHALER 2 PUFF INH (09:07)
[2024-10-09] MEDS: ATROVENT NEBULES 0.5 MG INH (09:07)
[2024-10-09] MEDS: XOPENEX 0.63 MG INHALANT SOLUTION INH ×2 (09:08→14:33)
[2024-10-09] MEDS: DULCOLAX 10 MG PO (09:32)
--- NOTE | 2024-10-09 11:19 | CM ---
Chart reviewed. Patient is independent of ADLS, lives with her daughter in a 3 [address], 1st level set up, 2 RASHEED, 0 DME. Patient is not current with VN, but is interested. Referral sent to [facility]. Patient qualifies for nocturnal O2. Referral sent to
[facility] for Nocturnal O2 and discontinue patient's CPAP. Plan is for the patient to go home with [facility] and [facility]. CM to follow
--- NOTE | 2024-10-09 11:21 | W.PN.HOSP.TC ---
Today's Communication/Plan
-
bowel regimen
po steroids
home if with BM today
Assessment / Plan
Assessment / Plan
Physical Exam
General: No Apparent Distress, appears comfortable at this time, sitting in chair
HEENT: Normocephalic and Atraumatic
Respiratory:mild/moderate rhonchi, on room air
Cardiac: S1/S2 and Irregular Rhythm
GI: Soft, Nontender, Nondistended and Normal Bowel Sounds
Musculoskeletal: No Clubbing, No Cyanosis and No Edema
Skin: Warm and Dry
Neuro: AO x 3 and No Motor Deficits
Psych: Calm
ASSESSMENT & PLAN
79F pAfib HTN HLD Breast Ca Lumpectomy Radiation Obesity KATHLEEN here for Bronchitis and Uncontrolled Afib
#Acute asthmatic viral bronchitis with reactive airway and bronchospasm
#Contact exposures to RSV from family members (though RSV neg possible false neg)
- IV Decadron 4mg q12h tapered to Prednisone 40 mg daily, cont taper by 10 mg after every 4th dose.
- RSV neg, Flu neg, COVID neg
- Xopenex tid and prn
-Pulm eval appreciated PFT noted moderate obstruction COPD vs asthma, short term follow up with repeat PFTs planned
#Afib with RVR triggered by acute asthmatic viral bronchitis
- previous flecainide therapy stopped due to ineffectiveness 06/2023
- s/p PV isolation ablation 10/08/2023
- continue Diltiazem gtt Metoprolol as per Cardio
- DC (Tikosyn) (on initially since 05/01/2024)
- Chronic AC; on Eliquis-continue
- cardio eval appreciated Tikosyn washout, Amiodarone started 10/06, Lasix 20 mg MWF, Amiodarone to reduced to 200 mg BID prior to discharge, Oct 17 appt with EP to discuss possible repeat ablation
- ECHO appreciated EF 55-60% no significant change from prior ECHO 10/06/23
#Abnormal Thyroid Function Test
TSH low but T4 Wnl suspect sick euthyroid syndrome vs possible steroid suppression TSH
recommend repeating TFT in a month with primary care provider
#No prior HX CHF
Possible Mild acute vs chronic HFpEF
-received diuretics, off IV lasix, started PO Lasix 20 mg MWF as per Cardio
#Constipation
-Colace, senna. dulcolax and MoM added
#Essential HTN
- cont cardizem gtt, metoprolol as per cardio
#KATHLEEN on CPAP.
- not tolerating CPAP at home
#Nocturnal Desaturation/Nocturnal Dyspnea ameliorated with nasal cannula supplementation
-Discussed patient's nocturnal oxygenation study result with Pulmonary datastage consultant. Per discussion, with accumulated time 2min 28 sec hypoxia <89%, patient qualifies for Bedtime Supplemental Oxygen 2L to maintain saturations overnight and promote good
sleep- overall beneficial to patient's health.
-Discussed with patient to discontinue further CPAP use in favor of bedtime Nasal cannula oxygen supplementation for the time being pending further evaluation treatment outpatient pulmonology. Patient able to verbalize understanding of above
recommendation and her agreement with plan.
-case mgmt consult appreciated Bedtime Oxygen Supplementation set up on discharge
Normal CAD 04/26/2023.
HX breast cancer status post lumpectomy and radiation in 1997.
DVT Px: on TILE PROFESSIONAL Eliquis.
Code: Full code
Anticipated Discharge: Within 24 hours
Subjective/Interval History
-
Date of Service: October 09, 2024
states improvement in breathing
passing flatulence but no bm x 5 days
no nausea or vomiting
tolerating diet
Objective Data
-
Labs:
Laboratory Results
10/09/24
04:03
WBC 10.4
Hgb 13.6
Hct 42.6
Plt Count 247
Sodium 136
Potassium 4.6
Chloride 102
Carbon Dioxide 31 H
BUN 35 H
Creatinine 1.0
Glucose 101 H
Calcium 9.5
Vital Signs:
Vital Signs
Temp Pulse Resp BP Pulse Ox
97.6 F 93 16 113/73 96
10/09/24 08:19 10/09/24 09:12 10/09/24 09:12 10/09/24 08:13 10/09/24 09:12
I&O
10/08/24 10/09/24 10/10/24
06:59 06:59 06:59
Intake Total 400 / 400
Balance 400 / 400
Data Reviewed
-
Total Time Spent with Patient (in minutes): 55
[2024-10-09] MEDS: VITAMIN D3 (cholecalciferol) 50 MCG PO (12:07)
[2024-10-09] MEDS: OCUVITE SOFTGEL 1 CAP PO (12:08)
--- NOTE | 2024-10-09 12:09 | PTCARENOTE ---
Patient had a large formed bowel movement
[2024-10-09 12:36] VITALS: BP 125/76
--- NOTE | 2024-10-09 12:55 | W.PN.UPDATE ---
Update Note
Progress Note Update
PCP: Dr. Marta Bansal
Cardiology: Dr. Perez
EP: Dr. Workman
Patient with URI and suspect RSV on admission. Found to be in Afib with known h/o pAfib. Would not recommend CV at this time due to high risk of recurrence in this setting. Will arrange for cardiology f/u and can CV if remains in Afib. Outpatient
dose of Tikosyn stopped this admission due to breakthroughs of arrhythmia even prior to this admission. Last dose of Tikosyn was 10/03/24 AM. New to amiodarone 200 mg TID and patient has received a 2.0 gram load as of 10/09/24. Recommend amiodarone 200
mg BID for 2 weeks upon d/c to home and then 200 mg daily thereafter. Outpatient dose of Eliquis 5 mg BID has been continued. Cardiology follow up arranged for 10/17/24. Will sign off and please call back if needed.
--- NOTE | 2024-10-09 13:47 | W.DCSUMMARY ---
Discharge Summary
Discharge Data
Date of Admission: 10/02/24
Date of Discharge: 10/09/24
-
Pending Results: No
Hospital Course
79F pAfib HTN HLD HX breast cancer status post lumpectomy and radiation in 1997, Obesity KATHLEEN here for Bronchitis and Uncontrolled Afib. Patient upon admission was started on Cardizem infusion and metoprolol per cardiology. Cardiology by the
patient. Eliquis was continued. Tikosyn was discontinued and started on amiodarone. Patient heart rate stabilized. Patient also with significant shortness of breath. Patient was on IV steroids and pulmonary was consulted. Patient symptomology
was secondary to acute suspected asthmatic viral bronchitis reactive airway and bronchospasm. Patient with contact exposure to RSV from family members. RSV was negative possibly could be false negative. Patient's symptoms improved with IV
Decadron. Patient was transition to p.o. prednisone taper regimen on discharge. Patient also qualified for nocturnal oxygenation. Patient with constipation which resolved with bowel regimen. Was recommended to repeat thyroid function testing in
1 month. Patient will be discharged home with nocturnal oxygenation and outpatient pulmonary and cardiology follow-up.
Discharge Plan
-
Patient Disposition: Home with Home Care
Discharge Diagnosis/Procedures: Acute asthmatic viral bronchitis with reactive airway and bronchospasm
Afib with RVR triggered by acute asthmatic viral bronchitis
Constipation
Condition: Fair
Diet: 2 Gram Sodium
Activity: With assistance and As tolerated
Driving Restrictions: As prior to admission
Blood Work: BMP 7-10 days after discharge VIA PRIMARY DOCTOR
Repeat thyroid function testing in one month with primary care provider
Referrals:
[facility] Visiting Nurse [Outside] ([phone])
Keli Valdez DO [Active] - in two weeks (w/ Beater Machine Operator, PFTs)
Marta Bansal DO [Family Provider] - in one week
Brittany Mora CRNP [Specified Professional Personl] - 10/17/24 3:00 pm (You have a cardiology follow-up appointment at the [facility] office with Dr. Workman's nurse practitioner, Brittany. Please call with questions. )
Additional Discharge Medication Instructions: -STOP taking Tikosyn (dofetilide)
-Start taking amiodarone 200 mg twice a day for 2 weeks and then reduce to 200 mg once a day thereafter
Prescriptions:
New
amiodarone 200 mg Tablet
200 mg PO BID Qty: 28 0RF
amiodarone 200 mg tablet
200 mg PO DAILY Qty: 30 11RF
benzonatate 100 mg Capsule
200 mg PO TIDPRN PRN (Reason: cough) Qty: 20 0RF
fluticasone propionate 220 mcg/actuation Hfa Aerosol Inhaler
2 puff inhalation R BID 30 Days Qty: 12 0RF
prednisone 10 mg Tablet
See Rx Instructions .ROUTE .COMPLEX Qty: 24 0RF
Rx Instructions:
Take By Mouth:
30 mg daily x4 days,20 mg daily x4 days, 10 mg daily x4 days.
Continued
atorvastatin 10 mg Tablet
10 mg PO HS
Eliquis 5 mg Tablet
5 mg PO BID
PreserVision AREDS-2 250-90-40-1 mg Capsule
1 tab PO BID
metoprolol tartrate 75 mg Tablet
75 mg PO BID
cholecalciferol (vitamin D3) [Vitamin D3] 50 mcg (2,000 unit) Capsule
50 mcg PO DAILY
levalbuterol tartrate [Xopenex HFA] 45 mcg/actuation HFA aerosol inhaler
2 inh inhalation R QID
Discontinued
dofetilide [Tikosyn] 500 mcg capsule
500 mcg PO Q12H Qty: 60 11RF
prednisone 50 mg tablet
50 mg PO DAILY
Patient Comments:
10/02/24: Patient has 1 dose left to take tomorrow
Discharge Orders:
Discharge Patient (As Directed); Ordered 10/09/24
Ordered By: Wojciech Langford
Care Plan Goals
Care Plan Goals:
Problem: Readiness for enhanced knowledge related to diagnosis and treatment plan
Goal: Understand your diagnosis and treatment plan needs, including medications if applicable.
Instructions: Know your diagnosis, underlying causes and treatment plan options, including medications if applicable. Consult with your health care team to learn about your diagnosis and treatment plan, including medications if applicable.
Discharge Date and Time
Discharge Date/Time: 10/09/24 15:29
Print Language: HONG KONGER
[2024-10-09] MEDS: ATROVENT NEBULES INH (14:33)
--- NOTE | 2024-10-09 14:43 | PTCARENOTE ---
Patient discharged to home, discharge instructions reviewed, patient verbalized understanding. IV and telemetry removed. Patient escorted to main lobby, daughter driving patient home
== END 2024-10-09 15:29 | disposition home or self-care (01) | DRG 308 ==
LOC: IVU 20:46
PROVIDERS: Internal Medicine; Physician Assistant; Physician Assistant Medical; ADMITTING PHYSICIAN Internal Medicine; ATTENDING PHYSICIAN Hospitalist; CONSULT PHYSICIAN Internal Medicine; EMERGENCY PHYSICIAN Emergency Medicine; FAMILY PHYSICIAN Family Medicine; OTHER PHYSICIAN Internal Medicine Cardiovascular Disease
DX: I48.0 Paroxysmal atrial fibrillation (principal); I50.33 Acute on chronic diastolic (congestive) heart failure; J45.901 Unspecified asthma with (acute) exacerbation; I11.0 Hypertensive heart disease with heart failure; J20.8 Acute bronchitis due to other specified organisms; K59.00 Constipation, unspecified; E78.00 Pure hypercholesterolemia, unspecified; J06.9 Acute upper respiratory infection, unspecified; I49.5 Sick sinus syndrome; G62.9 Polyneuropathy, unspecified; G47.33 Obstructive sleep apnea (adult) (pediatric); E66.812 Obesity, class 2; Z85.3 Personal history of malignant neoplasm of breast; Z68.35 Body mass index [BMI] 35.0-35.9, adult; Z87.891 Personal history of nicotine dependence; Z79.01 Long term (current) use of anticoagulants; Z92.3 Personal history of irradiation; I25.10 Atherosclerotic heart disease of native coronary artery without angina pectoris; Z20.828 Contact with and (suspected) exposure to other viral communicable diseases; H35.30 Unspecified macular degeneration; I08.1 Rheumatic disorders of both mitral and tricuspid valves; I27.20 Pulmonary hypertension, unspecified; Z79.899 Other long term (current) drug therapy
CPT/HCPCS: 71046; 80048; 80053; 83735; 83880; 84100; 84439; 84443; 84484; 85025; 85027; 87502; 87807; 87811; 93005; 93306; 94010; 94640; 94762; 96374; 96375; 99283; 99285

== ENCOUNTER 2024-11-13 06:58 | Day surgery (SDC) | payer MEDICARE, OTHER, SELFPAY ==
[2024-11-13 07:28] VITALS: BMI 34.8
== END 2024-11-13 09:30 | disposition home or self-care (01) ==
LOC: CATH 06:58
PROVIDERS: ATTENDING PHYSICIAN Nuclear Medicine Nuclear Cardiology; FAMILY PHYSICIAN Family Medicine; OTHER PHYSICIAN Internal Medicine Cardiovascular Disease
DX: I48.0 Paroxysmal atrial fibrillation (principal); I10 Essential (primary) hypertension; E78.5 Hyperlipidemia, unspecified; G47.33 Obstructive sleep apnea (adult) (pediatric); Z85.3 Personal history of malignant neoplasm of breast; Z79.01 Long term (current) use of anticoagulants
CPT/HCPCS: 92960; 93005

== ENCOUNTER 2025-03-12 10:16 | Emergency (ER) | payer MEDICARE, OTHER, SELFPAY ==
[2025-03-12 10:21] VITALS: BP 188/116
--- NOTE | 2025-03-12 11:04 | ED.GENMED ---
History of Present Illness
General
Chief Complaint: Abdominal Symptoms
Source: patient
Exam Limitations: none
Time Seen by Provider: 03/12/25 10:47
Nursing documentation reviewed up to this point in time: agreed with
History of Present Illness
History of Present Illness:
Patient presents ED secondary to persistent lower abdominal pain over the past 1 week. Abdominal pain described as crampy, nonradiating, worse with movements, minimal at rest. Denies fever or chills. Denies nausea, vomiting, or diarrhea. Patient
reports normal bowel habits. Denies trauma. Denies recent change in level activities. Denies recent change in medications or diet. Denies previous history of similar symptoms. Patient has had colonoscopy in the past, which had revealed
diverticulosis.
Past History
Past History
ED Past Medical History: Other (Hypertension, A-fib, macular degeneration, breast cancer in remission)
ED Past Surgical History: Orthopedic
Social History
Tobacco: Former smoker
Alcohol: None
Drug: None
Living: with family
Review of Systems
Review of Systems
Allergies reviewed?: Yes
Constitutional: Reports no symptoms; Denies fever
Respiratory: Reports no symptoms
Cardiac: Reports no symptoms
ABD/GI: Reports abdominal pain; Denies vomiting or diarrhea
Musculoskeletal: Reports no symptoms
Skin: Reports no symptoms
Neurological: Reports no symptoms
Phy Exam
Physical Exam
Physical Exam:
Physical Exam
General: no apparent distress, not acutely ill. afebrile
Head: nc/at. eomi
Neck: supple. normal range of motion.
Heart: s1/s2 regular rate and rhythm
Lungs: no acute respiratory distress. clear bilaterally
Abdomen: normal bowel sounds. mild lower abdominal tenderness to palpation, L>R
Neuro: alert and oriented x 3. no focal neurological deficits
Skin: no rash
Psychiatric: well kept. interactive and cooperative
Extremities: no edema. no calf tenderness.
Course
Orders/Labs/Results
Orders:
Orders
03/12/25 11:04
CT Abd/pelvis W Iv Cont Urgent
Comment:
Reason For Exam: Low abd pain, L>R
03/12/25 11:24
0.9% Sodium Chloride 500 ml [Nss] 500 ml IV BOLUS
03/12/25 12:12
Basic Metabolic Panel Urgent
Complete Blood Count/With Diff Urgent
Abnormal Lab Results
03/12/25
12:12
MCHC 32.1 L g/dL
(33.0-37.0)
Absolute Lymphs (auto) 1.1 L 10^3/uL
(1.2-3.4)
Chloride 108 H mmol/L
(98-107)
BUN 21 H mg/dl
(7-17)
Glucose 103 H mg/dl
(70-99)
03/12/25 12:12
03/12/25 12:12
Vital Signs
Initial and Last Documented VS:
Initial Vital Signs
Temp Pulse Resp BP Pulse Ox
97.8 F 111 18 188/116 97
03/12/25 10:21 03/12/25 10:21 03/12/25 10:21 03/12/25 10:21 03/12/25 10:21
Last Documented Vital Signs
Temp Pulse Resp BP Pulse Ox
97.8 F 81 17 133/93 98
03/12/25 10:21 03/12/25 15:45 03/12/25 15:45 03/12/25 15:22 03/12/25 15:45
*Critical Care Note
Total Time (30-74mins, 75-104mins- exclusive of procedures): Not Applicable
ED Attending Note
-
Portions of this chart may have been created with voice recognition software.� Occasional wrong word or��sound alike� substitutions may have occurred due to the inherent limitations of voice recognition software.
Discharge Plan
Departure
Patient Disposition: Home (Routine Discharge)
Date of Disposition: 03/12/25
Time of Disposition: 15:46
Patient with high blood pressure during this ER visit?: Yes
Discharge Problem:
Abdominal pain
Instructions: Abdominal Pain, BLOOD PRESSURE
Prescriptions:
No Action
atorvastatin 10 mg Tablet
10 mg PO HS
Eliquis 5 mg Tablet
5 mg PO BID
PreserVision AREDS-2 250-90-40-1 mg Capsule
1 tab PO BID
metoprolol tartrate 75 mg Tablet
75 mg PO BID
cholecalciferol (vitamin D3) [Vitamin D3] 50 mcg (2,000 unit) Capsule
50 mcg PO DAILY
amiodarone 200 mg tablet
200 mg PO DAILY Qty: 30 11RF
furosemide [Lasix] 20 mg Tablet
20 mg PO MOWEFR
Referrals:
Marta Bansal DO [Family Provider, Family Practice]
Activity Restrictions/Additional Instructions:
CAT SCAN REPORT:
1. No specific findings to explain lower abdominal pain. No acute intra-abdominal process identified.
2. Cardiomegaly. Small pericardial effusion. These findings are similar to CT chest 10/04/2023.
3. Hepatic fatty infiltration.
4. Bilateral adrenal thickening likely related to hyperplasia. There are also small bilateral adrenal nodules as above. Given the size, likely to represent benign adenomas however these are indeterminate by Hounsfield units.
5. Cholelithiasis.
6. Diverticulosis without diverticulitis.
7. Renal cyst and probable cysts without suspicious features.
Your white blood cell count is normal. Other basic blood work was unremarkable. Return here if worse or other concerns. Follow-up your primary care doctor.
Interventions
Interventions:
*Risk Screen - Suicide Last Done: 03/12/25 10:21
*General Assessment Last Done: 03/12/25 10:21
*Neglect/Abuse Screening Last Done: 03/12/25 10:21
*ED- Fall Risk Assessment Last Done: 03/12/25 12:27
*ED COVID-19 Vaccine History Last Done: 03/12/25 12:27
*Nursing Disposition Last Done: 03/12/25 16:09
TP-Dsiswx-Orcwblqams Assessment Last Done: 03/12/25 12:27
Discharge Date and Time
Discharge Date/Time: 03/12/25 16:13
Print Language: POLISH
[2025-03-12 11:22] VITALS: BP 155/90
[2025-03-12] MEDS: NSS 500 IV (12:10)
[2025-03-12 12:29] VITALS: BMI 37.1
[2025-03-12 12:31] LABS: % Basophils 0.8 % (0-2); % Eosinophils 1.4 % (0-6); % Immature Granulocytes 0.4 % (0-0.5); % Monocytes 8.6 % (1.7-9.3); % Neutrophils 67.8 % (42.2-75.2); Absolute Eosinophils 0.1 10^3/uL (0-0.7); Absolute Lymphocytes 1.1 10^3/uL (1.2-3.4); Absolute Monocytes 0.4 10^3/uL (0.1-0.6); Absolute Neutrophils 3.4 10^3/uL (1.4-6.5); Hematocrit 43.6 % (37.0-47.0); Mean Corp Hgb Conc. 32.1 g/dL (33.0-37.0); Mean Corpuscular Hgb 30.6 pg (27.0-31.0); Mean Corpuscular Volume 95.4 fL (81.0-99.0); Mean Platelet Volume 10.4 fL (7.4-10.4); Nucleated Red Blood Cells % 0 %; Platelet Count 194 10^3/uL (130-400); Red Blood Cell Count 4.57 10^6/uL (4.20-5.40); Red Cell Dist. Width 14.2 % (11.5-14.5)
[2025-03-12 12:43] LABS: Blood Urea Nitrogen 21 mg/dl (7-17); Carbon Dioxide 30 mmol/L (22-30); Chloride 108 mmol/L (98-107); Estimated Creatinine Clearance 53 ml/min; Glucose 103 mg/dl (70-99); Potassium 4.7 mmol/L (3.5-5.1); Sodium 143 mmol/L (135-145); eGFR > 60.00
[2025-03-12 14:00] VITALS: BP 158/90
[2025-03-12 15:22] VITALS: BP 133/93
== END 2025-03-12 16:13 | disposition home or self-care (01) ==
LOC: EMR 10:16
PROVIDERS: EMERGENCY PHYSICIAN Emergency Medicine; FAMILY PHYSICIAN Family Medicine
DX: R10.30 Lower abdominal pain, unspecified (principal); I11.9 Hypertensive heart disease without heart failure; I48.91 Unspecified atrial fibrillation; H35.30 Unspecified macular degeneration; Z85.3 Personal history of malignant neoplasm of breast; Z87.891 Personal history of nicotine dependence
CPT/HCPCS: 99284; 74177; 80048; 85025; Q9967

== ENCOUNTER → 2025-03-16 15:19 | Outpatient (REF) | payer MEDICARE, OTHER, SELFPAY | LOC: DHSLP 15:19 | PROVIDERS: ATTENDING PHYSICIAN Internal Medicine; FAMILY PHYSICIAN Family Medicine | DX: G47.33 Obstructive sleep apnea (adult) (pediatric) (principal) | CPT/HCPCS: 95800 ==

== ENCOUNTER → 2025-04-04 07:55 | Outpatient (REF) | payer MEDICARE, OTHER, SELFPAY ==
[2025-04-04 09:00] LABS: INR 1.32; PT 16.9 Sec (11.4-14.6)
[2025-04-04 09:11] LABS: Hematocrit 42.6 % (37.0-47.0); Hemoglobin 13.5 g/dL (12.0-16.0); Mean Corp Hgb Conc. 31.7 g/dL (33.0-37.0); Mean Corpuscular Volume 96.8 fL (81.0-99.0); Nucleated Red Blood Cells % 0 %; Platelet Count 183 10^3/uL (130-400); Red Cell Dist. Width 14.7 % (11.5-14.5)
[2025-04-04 09:12] LABS: ALT (SGPT) 37 U/L (0-35); AST (SGOT) 34 U/L (14-36); Albumin 4.2 g/dl (3.5-5.0); Alkaline Phosphatase 98 U/L (38-126); Blood Urea Nitrogen 23 mg/dl (7-17); Calcium 9.6 mg/dl (8.4-10.2); Carbon Dioxide 28 mmol/L (22-30); Chloride 109 mmol/L (98-107); Glucose 98 mg/dl (70-99); Magnesium 2.4 mg/dl (1.6-2.3); Potassium 4.5 mmol/L (3.5-5.1); Sodium 142 mmol/L (135-145); Total Protein 6.5 g/dl (6.3-8.2); eGFR 56.95
== END ==
LOC: SDSPAT 07:55
PROVIDERS: ATTENDING PHYSICIAN Internal Medicine Cardiovascular Disease; FAMILY PHYSICIAN Family Medicine; REFERRING PHYSICIAN Internal Medicine Cardiovascular Disease
DX: I48.19 Other persistent atrial fibrillation (principal)
CPT/HCPCS: 36415; 75572; 80053; 83735; 85025; 85610; 86850; 86900; 86901; 93005; Q9967

== ENCOUNTER 2025-04-13 06:02 | Day surgery (SDC) | payer MEDICARE, OTHER, SELFPAY ==
[2025-04-04 08:04] VITALS: BMI 36.3
[2025-04-13] VITALS (23 sets, daily range): BP systolic 112–152; BP diastolic 52–93; BMI 36.1
--- NOTE | 2025-04-13 07:19 | ITS.CL.ABL ---
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
Ablation
Procedure Report:
Primary Closed Circuit Screen Watcher: Dr Fang Perez
Procedure Date: 04/13/2025
Patient History:
Patient is a pleasant 79-year-old female with a past medical history significant for obesity, breast cancer with lumpectomy and radiation, depression/anxiety, hypertension, sleep apnea, tachybradycardia syndrome, and persistent atrial fibrillation.
See H&P for complete details.
Indication:
Symptomatic persistent atrial fibrillation
Arrhythmia Specific History:
Prior Medical Therapies for Rate and Rhythm Control:
X Beta-stacy
[ ] Calcium channel-stacy
X Amiodarone
[ ] Dronederone
[ ] Sotalol
[ ] Flecainide
X Dofetilide
X Options limited by bradycardia
[ ] Options limited by comorbid renal disease
Prior Procedural Therapies for AF/AFL:
X Cardioversion
X Pulmonary Vein Isolation - Cryoballoon 10/08/2023
[ ] Posterior Wall Isolation
[ ] Additional lines (Specify)
[ ] Surgical Verdugo-MAZE or PVI (Specify)
Procedure Performed:
X AF ablation procedure (60742) -- includes LA/CS pacing, trans-septal, 3D mapping, + ICE
[ ] +IV drug (36042)
[ ] +Other Arrhythmia (28368)
X +Other AF Line/ablation (34379z6) -- floor line, roof line, posterior wall isolation, LA ridge
Risks and expected recovery has been explained in detail. Alternative options have been explored, and in a shared-decision making fashion we have decided that this was the most appropriate procedure.
Method
NPO status confirmed. Grounding pad applied. Defibrillator pads applied. Continuous surface ECG, pulse oximetry, and blood pressure were monitored. Procedure was performed under general anesthesia, with anesthesia services.
Both groins were clipped, prepped with Chloraprep, and draped in sterile fashion. Time out was called. Local anesthesia administered with bupivacaine. The right femoral vein was accessed for catheter placement, using ultrasound guidance (images
saved to record), micro-puncture needle/wire, and modified seldinger technique. 3 sheaths were placed. The following catheters were used:
[ ] Tacticath SE (D/F Curve) ablation catheter
X Viewflex 9Fr ICE catheter
X Inquiry decapolar 6Fr diagnostic catheter
[ ] CRD Hex 6Fr
X Agilis 11.5 Fr Steerable Sheath
X Sphere-9 Ablation catheter
[ ] Advisor HD Grid Mapping Catheter, SE
[ ] Acuson AcuNav 8 Fr ICE catheter
[ ] Other: [ ]
A multipolar catheter were advanced to the coronary sinus. Intracardiac ultrasound (ICE) was carefully advanced into the right atrium to guide sheath placement over a J-wire, catheter placement, guide trans-septal puncture, identify potential
complications, identify anatomic structures and ensure proper contact between ablation catheter and tissue. A small circumferential pericardial effusion was noted at the initiation of case. This remained unchanged during the procedure as well as
at case completion. CT scan prior to ablation demonstrated a small pericardial effusion.
Heparin was given to achieve and maintain a target ACT of 300-400 seconds throughout the procedure.
Trans-septal access was performed under ICE guidance. The trans-septal puncture was performed with a SafeSept wire through a Brockenbrough needle assembly through the steerable sheath. The wire was visualized as it entered the LSPV and system
advanced under ICE guidance and fluoroscopy into the LA. The Brockenbrough needle assembly, SafeSept wire and sheath dilator were removed under negative pressure. LA pressure was measured and recorded.
ICE and 3D mapping was performed to identify relevant cardiac structures. A careful 3D map was created to assess for regions of low-voltage and abnormal electrogram signals using Sphere-9 catheter. Additional mapping was performed as outlined below.
Prior to ablation, glycopyrrolate was provided. Sphere 9 catheter was advanced into the left atrium. Electroanatomic mapping was performed using the Sphere 9 catheter. There appeared to be reconnection of the right superior and right inferior
pulmonary veins by electroanatomic mapping. Pulmonary vein isolation was performed using pulsed field ablation in a circumferential manner. Contact was visualized via EAM, ICE, fluoroscopy, and EGM signals.
After accomplishing pulmonary venous isolation, mapping identified additional areas likely to be extra PV contributors to atrial fibrillation. These areas demonstrated patchy low voltage as well as complex fractionated electrograms. These areas can
be sites for the formation of rotors which can drive and maintain atrial fibrillation. These areas are known to be significant contributors to initiation and perpetuation of atrial fibrillation.
Additional energy applications/additional ablation sets targeted extra PV contributors to atrial fibrillation.
Targets for additional PFA ablation included: LA posterior wall targeted with pulsed electric field energy isolating the posterior wall of the left atrium. Posterior wall isolation was performed by aforementioned methods using Sphere-9 catheter.
After ablation of the posterior wall, targets remained including:
- Inferior LA floor
- Anterior LA roof
- The ridge of tissue between the left atrial appendage and the left sided pulmonary veins (Ligament of Abdulaziz)
These areas were ablated using pulsed electric field energy eliminating the extra PV contributors to atrial fibrillation.
Following completion of ablation lesions, sinus rhythm was restored with a 200J synchronized DCCV and a post-ablation voltage/activation map was performed in sinus rhythm. Entrance and exit block were confirmed for each vein and the posterior wall.
Catheter and sheath were removed from the left atrium and post-ablation intracardiac echo evaluation was consistent with pre-ablation with no changes and no pericardial effusion and there is no left atrial thrombus or left ventricle thrombus seen.
Electrophysiology study was performed. No arrhythmia was induced. Hemostasis was obtained with figure of 8 stitch for each groin and with manual pressure. Protamine was used for reversal.
Estimated Blood Loss
5 mL
Complications
None
Fluoroscopy: 2.5 minutes; 5.87 mGy; DAP 0.842
LA Pressure: Pre 10 mmHg, post 12 mmHg
Baseline Intervals:
Rhythm: AF
QRS: 99 ms
QT: 326 ms
QTc: 392 ms
Post-Procedure Intervals:
TN: 198 ms
QRS: 74 ms
QT: 475 ms
QTc: 455 ms
A-A: 1088 ms
R-R: 1088 ms
AVWB: 430 ms
AERP: 600/250 ms
Recommendations
- Bedrest with straight-leg precautions as ordered
- Anticipate same day discharge if patient meeting clinical metrics
- Resume home medications as indicated
- Ok to resume anticoagulation tonight if patient and groin sites stable
- PPI daily for 30 days
- Plan for follow-up in office as scheduled
- Continue amiodarone with planned discontinuation at the 3 month visit
Matthew Workman, , FACC, RS
Clinical Cardiac Coin Purse Assembler
cc: Dr Fang Perez; Dr Marta Bansal
[2025-04-13 08:38] LABS: ACT-LR - POC 340 Seconds (116-155)
[2025-04-13 08:54] LABS: ACT-LR - POC 364 Seconds (116-155)
[2025-04-13 09:12] LABS: ACT-LR - POC 356 Seconds (116-155)
[2025-04-13 09:36] LABS: ACT-LR - POC 157 Seconds (116-155)
[2025-04-13] MEDS: DILAUDID 0.5 MG IV (10:42)
--- NOTE | 2025-04-13 14:38 | W.PN.UPDATE ---
Update Note
Progress Note Update
79 yo WF s/p PVI (same day). She denies cp, sob, eugenia diet, voiding, amb w/o dizziness, EKG SR, R fem site c/d/i no HT, soft. She will resume Eliquis tonight and continue amiodarone, metoprolol. We will add PPI for 30 days. Activity restrictions
reviewed. She will f/u Dr. Prater in 3 mo. She is for d/c home after 230p.
== END 2025-04-13 14:35 | disposition home or self-care (01) ==
LOC: CATH 06:02
PROVIDERS: ATTENDING PHYSICIAN Internal Medicine Cardiovascular Disease; FAMILY PHYSICIAN Family Medicine; OTHER PHYSICIAN Internal Medicine Cardiovascular Disease
DX: I48.19 Other persistent atrial fibrillation (principal); I10 Essential (primary) hypertension; E78.5 Hyperlipidemia, unspecified; G47.33 Obstructive sleep apnea (adult) (pediatric); K76.0 Fatty (change of) liver, not elsewhere classified; Z85.3 Personal history of malignant neoplasm of breast; Z79.01 Long term (current) use of anticoagulants
CPT/HCPCS: C1894; C1730; C1733; C1766; 85347; 93005; 93656; 93657